=== PATIENT | male | born 1965 | race Caucasian/White ===

== ENCOUNTER 2020-07-11 06:51 | Outpatient (REF) | payer OTHER, SELFPAY ==
[2020-07-16 14:11] LABS: Testosterone, Free 64.4 pg/mL (35.0-155.0); Testosterone, Total 515 ng/dL (250-1100)
== END 2020-07-11 06:52 | disposition home or self-care (01) ==
LOC: HO.LAB 06:51
PROVIDERS: PCP Internal Medicine; Visit Provider Internal Medicine
DX: E78.2 Mixed hyperlipidemia (principal); I10 Essential (primary) hypertension; F17.200 Nicotine dependence, unspecified, uncomplicated; Z86.010 Personal history of colon polyps
CPT/HCPCS: 84402; 84403

== ENCOUNTER 2020-08-22 07:09 | Outpatient (REF) | payer OTHER, SELFPAY | END 2020-08-22 07:10 | disposition home or self-care (01) | LOC: HO.LAB 07:09 | PROVIDERS: Visit Provider Internal Medicine | DX: Z20.828 Contact with and (suspected) exposure to other viral communicable diseases (principal) | CPT/HCPCS: C9803; U0003 ==

== ENCOUNTER 2020-12-10 07:43 | Outpatient (REF) | payer OTHER, SELFPAY ==
[2020-12-10 08:11] LABS: MANUAL DIFF FLAG NO
[2020-12-10 08:16] LABS: Basophils Absolute Auto 0.1 X10*3/uL (0.0-0.2); Basophils Percent Auto 0.6 % (0-2); Eosinophils Absolute Auto 0.2 X10*3/uL (0.0-0.4); Eosinophils Percent Auto 2.2 % (0-4); Hematocrit 51.5 % (42-52); Hemoglobin 17.4 g/dl (14.0-18.0); Imm Gran Abs Auto 0.04 X10*3/uL (0.00-0.03); Imm Gran Pct Auto 0.4 % (0.0-0.4); Lymphocytes Absolute Auto 2.4 X10*3/uL (1.2-4.9); Lymphocytes Percent Auto 27.2 % (20-40); Mean Corpuscular HGB Conc 33.8 g/dl (31.0-36.0); Mean Corpuscular Hemoglobin 29.7 pg (27.0-33.0); Mean Corpuscular Volume 87.9 fL (80-98); Mean Platelet Volume 10.1 fL (9.4-12.4); Monocytes Absolute Auto 0.7 X10*3/uL (0.1-1.2); Monocytes Percent Auto 8.3 % (2-11); Neutrophils Absolute Auto 5.5 X10*3/uL (2.0-8.3); Neutrophils Percent Auto 61.3 % (45-73); Platelet Count 165 X10*3/uL (160-400); Red Blood Count 5.86 X10*6/uL (4.60-5.80); Red Cell Distribution Width 12.6 % (11.0-16.0); White Blood Count 8.9 X10*3/uL (4.8-10.8)
[2020-12-10 08:52] LABS: Alanine Aminotransferase 40 U/L (0-40); Albumin Level 4.5 g/dL (3.5-5.0); Alkaline Phosphatase 69 U/L (39-117); Anion Gap 14 (12-20); Aspartate Amino Transferase 26 U/L (5-37); Bilirubin Total 0.5 mg/dL (0.0-1.0); Blood Urea Nitrogen 11 mg/dL (9-16); Calcium 9.2 mg/dL (8.4-10.2); Carbon Dioxide 26 mmol/L (22-29); Chloride 103 mmol/L (96-108); Cholesterol 158 mg/dL; Estimated Glomerular Filt Rate > 60; Glucose Random 130 mg/dL (60-115); HDL Cholesterol 33 mg/dL; LDL Cholesterol Calculated 76 mg/dl; Potassium 4.4 mmol/L (3.3-5.1); Sodium 139 mmol/L (135-145); Total Protein 7.5 g/dL (6.5-8.0); Triglycerides 246 mg/dL
== END 2020-12-10 07:44 | disposition home or self-care (01) ==
LOC: HO.LAB 07:43
PROVIDERS: PCP Internal Medicine; Visit Provider Internal Medicine
DX: E78.2 Mixed hyperlipidemia (principal); I10 Essential (primary) hypertension; Z72.0 Tobacco use; Z86.010 Personal history of colon polyps
CPT/HCPCS: 36415; 80053; 80061; 85025

== ENCOUNTER 2021-12-28 15:40 | Emergency (ER) | payer OTHER, SELFPAY ==
[2021-12-28 15:48] VITALS: BP 116/58; PULSE 88; RESP 16; TEMP 35.7; O2SAT 97; BMI 24.3
--- NOTE | 2021-12-28 16:44 | ED_ITS ---
HPI - Back Pain/Injury General Chief Complaint: Back Pain/Injury Stated Complaint: back pain Time Seen by Provider: 12/28/21 16:44 Source: patient Mode of arrival: ambulatory Limitations: no limitations History of Present Illness HPI Narrative: Patient is a 56 year old male presenting to the emergency department today with low back pain. Patient states that he has low back that radiates into his left leg. Patient denies any dizziness, lightheadedness, abdominal pain, nausea, vomiting, fever, chills, blurry vision, double vision, loss of vision, chest pain, difficulty breathing, shortness of breath, night sweats, pain with urination, increased urinary frequency, increased urinary urgency, blood in his urine or stool, syncope or a near syncopal episode, recent trauma or falls, bowel incontinence, bladder incontinence, bowel retention, bladder retention, or any other complaints at this time. Patient states that he injured his left ankle and has been in PT for it but has recently been using crutches. MD elicited complaint: back pain Pertinent past history: prior back pain Onset (ago): day(s) Timing: intermittent Severity: mild Pain scale (0-10): 3 Similar Symptoms Previously: Yes Quality: dull Location: lumbar spine Radiation: left upper leg Exacerbating factors: none Relieving factors: none Associated symptoms: denies other symptoms Related Data Previous Rx's Medication Instructions Recorded cyclobenzaprine 10 mg tablet 10 mg PO TID PRN 7 Days #21 tab 12/28/21 Allergies Allergy/AdvReac Type Severity Reaction Status Date / Time No Known Allergies Allergy Unverified 10/23/21 14:50 [No Known Allergies*] Review of Systems Constitutional: Constitutional: Reports no additional constitutional complaints, Denies chills, Denies fever(s) and Denies night sweats Eyes: Eyes: Reports no additional eye complaints, Denies blurry vision, Denies change in vision, Denies diplopia, Denies eye discharge, Denies loss of vision and Denies eye pain ENT: Denies dizziness Cardiovascular: Cardiovascular: Reports no additional cardiovascular complaints, Denies chest pain, Denies lightheadedness, Denies Loss of Consciousness and Denies dyspnea Respiratory: Respiratory: Reports no additional respiratory complaints and Denies dyspnea Gastrointestinal: Gastrointestinal: Reports no additional gastrointestinal complaints, Denies abdominal pain, Denies melena, Denies hematochezia, Denies change in bowel habits and Denies change in stool character Genitourinary: Genitourinary: Reports no additional male genitourinary complaints, Denies hematuria, Denies oliguria, Denies difficulty urinating, Denies dysuria, Denies urinary frequency, Denies urinary hesitancy, Denies urinary incontinence and Denies urinary urgency Musculoskeletal: Musculoskeletal: Reports no additional musculoskeletal complaints, Reports back pain, Denies numbness and Denies tingling Neurologic: Denies dizziness, Denies loss of vision, Denies numbness and Denies tingling Psychiatric: Psychiatric: Reports no additional psychiatric complaints Endocrine: Endocrine: Reports no additional endocrine complaints Hematologic/Lymphatic: Hematologic/Lymphatic: Reports no additional hematologic/lymphatic complaints Allergic/Immunologic: Allergic/Immunologic: Reports no additional allergic/immunologic complaints PMFSH Past Medical History Attestation statement: The following information was validated with the patient. Source: old records reviewed Surgical History H/O elbow surgery History of appendectomy Social History Social History Advance Directives: No Advance Directives Information Provided: No Physical Exam Vital Signs: Vital Signs: Last Vital Signs Temp 96.2 F L 12/28/21 15:48 Pulse 88 12/28/21 15:48 Resp 16 12/28/21 15:48 BP 116/58 L 12/28/21 15:48 Pulse Ox 97 12/28/21 15:48 BMI result Body Mass Index 24.3 Const: General: cooperative, no acute distress, alert and awake Nutritional Appearance: well nourished Orientation/consciousness: patient oriented x3 Limitations: no limitations HEENT: Head: Yes normal to inspection and Yes atraumatic Ears: hearing grossly normal bilaterally and external ears normal General nose exam: Normal external nose present, no nasal discharge noted and no epistaxis Face and sinus: Yes normal facial exam, No abrasion and No laceration Mouth: Normal oral and palatal mucosa present, no drooling and no muffled voice Eyes: General: appearance normal, both eyes and all related structures Periorbital: periorbital findings normal Eyelids: Yes eyelids normal Conjunctivae: conjunctivae normal Pupils: Equal, round and reactive pupils present EOM: EOMs intact bilaterally Neck: Neck: Yes normal visual inspection, Yes full ROM and Yes no lymphadenopathy Chest: Chest palpation & inspection: normal inspection of the chest Resp: Effort & Inspection: normal respiratory effort and able to speak in complete sentences Auscultation: clear to auscultation bilaterally Cardio: Rate: regular rate Rhythm: regular rhythm GI: Inspection: Yes normal to inspection Back/Spine/Pelvis: Cervical Spine: normal cervical lordosis and cervical ROM normal Thoracic/Lumbar Spine: thoracic and lumbar spine normal to inspection and thoraco-lumbar ROM normal Neuro: General: patient oriented x3 and moves all extremities Cranial nerves: Yes Equal, round and reactive pupils present Cognition (Neuro): normal cognition Motor exam (neuro): 5/5 motor strength present throughout Sensory Exam: Normal double simultaneous stimulation for sensation Coordination: [id number] test normal Extrem: General: Yes normal to inspection, Yes full ROM and Yes capillary refill normal Psych: Appearance: grossly normal Mental Status: mental status grossly normal Affect: normal affect Attitude: cooperative Thought process: Normal thought process present Thought content: Normal thought content present Insight: Good insight present (Psych) MDM - Back Pain/Injury MDM Narrative Medical decision making narrative: Patient is a 56 year old male presenting to the emergency department today with low back pain. Patient's physical exam was unremarkable. I explained my physical exam findings to the patient. I answered all questions asked by the patient. Patient received PO Flexeril and IM toradol which he stated helped his symptoms significantly. I stressed the importance of the patient taking his medication as prescribed. I stressed the importance of the patient following up with his primary care provider and an orthopedist. I stressed the importance of the patient returning to the emergency department immediately if his symptoms were to worsen or if he were to develop any dizziness, shortness of breath, difficulty breathing, chest pain, blurry vision, loss of vision, nausea, vomiting, abdominal pain, fever, chills, back pain, or any other complaints. Patient verbalized agreement and understanding with this treatment plan and discharge. Differential Diagnosis Differential diagnosis: Likely sciatica Medical Records Attestation: I reviewed the patient's medical records. Discharge Plan Discharge Clinical Impression: Sciatica Patient Disposition: Home, Self-Care Instructions: Sciatica (ED) Additional Instructions: Call to schedule a follow up appointment with an Orthopedic provider. Follow up with your primary care provider. Return to the emergency department immediately if your symptoms worsen or if you develop any dizziness, shortness of breath, difficulty breathing, chest pain, blurry vision, loss of vision, nausea, vomiting, abdominal pain, fever, chills, back pain, or any other complaints. Prescriptions: New cyclobenzaprine 10 mg tablet 10 mg PO TID PRN (Reason: muscle spasm) 7 Days Qty: 21 0RF [place] [facility] [place] [facility] [place] Group] Print Language: Yi
[2021-12-28] MEDS: Cyclobenzaprine HCl 10 MG TABLET PO (17:12)
[2021-12-28] MEDS: Ketorolac Tromethamine 30 MG/ML VIAL IM (17:12)
== END 2021-12-28 17:31 | disposition home or self-care (01) ==
PROVIDERS: Emergency Provider Internal Medicine; PCP Internal Medicine
DX: M54.42 Lumbago with sciatica, left side (principal)
CPT/HCPCS: 96372; 99284; J1885

== ENCOUNTER 2022-01-14 17:24 | Emergency (ER) | payer OTHER, SELFPAY ==
--- NOTE | ~2022-01-14 | CT_ITS ---
EXAMINATION: CT ABDOMEN AND PELVIS WITH CONTRAST CLINICAL INFORMATION: Back and flank pain COMPARISON: None TECHNIQUE: Multidetector volumetric images were obtained from the superior aspect of the liver through the pubic symphysis following administration 85 mL of Omnipaque 350 intravenous contrast. Sagittal and coronal reformatted images were obtained on the technologist's workstation. Oral contrast: No This CT examination was performed using dose optimization techniques as appropriate, variously including the following: *Automated exposure control *Adjustment of mA and/or kV according to patient size (this includes techniques or standardized protocols for targeted exams where dose is matched to indication/reason for exam; i.e. extremities or head) *Use of iterative reconstruction technique DLP: 648 mGy-cm FINDINGS: LUNG BASES: The visualized lung bases are unremarkable. LIVER, GALLBLADDER, AND BILIARY TREE: The liver is normal in size, shape, and attenuation. Tiny 5 mm hypodensity in the right lobe of the liver indeterminate because of its small size (6:114). No other focal hepatic lesion or biliary ductal dilatation is present. The gallbladder is contracted but otherwise unremarkable with no evidence of radiopaque gallstones, gallbladder wall thickening, or obvious pericholecystic inflammatory changes. PANCREAS: Unremarkable. SPLEEN: Unremarkable. ADRENAL GLANDS: Unremarkable. KIDNEYS AND URETERS: The kidneys are normal in size, shape, and attenuation. A small Bosniak class I left upper pole left kidney and left lower pole renal cyst is seen the largest measuring 1.7 cm. These need no further imaging or follow-up. No hydronephrosis, hydroureter, or calculi seen. No perinephric stranding. BLADDER: Unremarkable. GASTROINTESTINAL TRACT: The small and large bowel are unremarkable. The appendix is none identified with certainty.. ABDOMINAL WALL: No significant hernia is appreciated. LYMPH NODES: Normal. VASCULAR: Unremarkable. The iliac vessels are tortuous. No aneurysms are seen. PELVIC VISCERA: There is mild BPH. Seminal vesicles appear normal. OSSEOUS STRUCTURES: Diffuse sclerotic lesions are present throughout the skeleton with some lytic areas. Findings are concerning for metastatic disease no definite pathologic fractures are seen. CT/CT abdomen pelvis w con IMPRESSION: Diffuse sclerotic and some lytic areas are seen throughout the skeleton. Findings are concerning metastatic disease, possibly prostate among other possibilities. Other incidental findings as described above. This critical result was discussed with RONALD Simpson at 9:20 PM on the evening of the exam and it was ascertained that the content and urgency of the report was understood at the time of direct communication. Fleischner guidelines were followed.
--- NOTE | ~2022-01-14 | CT_ITS ---
EXAMINATION: CT LUMBAR SPINE WITH CONTRAST CLINICAL INFORMATION: Low back pain. COMPARISON: Lumbar spine x-ray December 2018. TECHNIQUE: Axial images through the lumbar spine without contrast. Sagittal and coronal reconstructions on the technologist's workstation were performed. This CT examination was performed using dose optimization techniques as appropriate, variously including the following: *Automated exposure control. *Adjustment of mA and/or kV according to patient size (this includes techniques or standardized protocols for targeted exams where dose is matched to indication/reason for exam; i.e. extremities or head). *Use of iterative reconstruction technique. DLP: 648 mGy-cm FINDINGS: Bone alignment is normal. No fracture or dislocation is seen. There is heterogeneous attenuation of the bones with multiple lytic and sclerotic lesions. Findings are suggestive of bony metastatic disease. SPINAL LEVELS: At L1-L2, there is no disc herniation protrusion or bulge. Spinal canal, lateral recesses and neural foramen are patent. At L2-L3, there is a small left paracentral disc herniation. There is a small amount of air seen in the L2-L3 disc space. There is a small amount of air seen posterior to the L3 vertebral body. This may be related to disc disease. Differential would include infection. There is a severe secondary spinal stenosis at L2-L3 due to disc, and short pedicles. At L3-L4, there is broad-based diffuse disc bulge. There is no disc herniation. There is [id number] spinal stenosis due to disc and short pedicles. At L4-L5, there is diffuse disc bulge. No disc herniation is seen. There is moderate spinal stenosis due to disc and short pedicles. At L5-S1, there is mild disc bulge. No disc herniation is seen. No spinal stenosis is seen. Paraspinal soft tissues are normal. CT/CT lumbar spine w con IMPRESSION: 1. Heterogeneous appearance of the bones with multiple small sclerotic and lytic lesions. Findings are suggestive of bony metastatic disease. 2. Small left paracentral disc herniation at L2-L3. Small amount of air in the disc space at L2-L3 and air posterior to the L3 vertebral body. This may be related to degenerative disc disease. Differential would include infection. Severe secondary spinal stenosis due to disc and short pedicles at L2-L3. Disc bulge and moderate secondary spinal stenosis at L3-L4 and L4-L5.
[2022-01-14 17:38] VITALS: BP 103/49; PULSE 88; RESP 25; TEMP 36.9; O2SAT 99; BMI 23.7
[2022-01-14 17:47] LABS: MANUAL DIFF FLAG NO
[2022-01-14 17:49] LABS: Basophils Percent Auto 0.2 % (0-2); Eosinophils Absolute Auto 0.1 X10*3/uL (0.0-0.4); Eosinophils Percent Auto 0.6 % (0-4); Hematocrit 38.7 % (42.0-52.0); Hemoglobin 13.3 g/dl (14.0-18.0); Imm Gran Pct Auto 4.6 % (0.0-0.4); Lymphocytes Absolute Auto 3.4 X10*3/uL (1.2-4.9); Lymphocytes Percent Auto 26.1 % (20-40); Mean Corpuscular HGB Conc 34.4 g/dl (31.0-36.0); Mean Corpuscular Hemoglobin 27.4 pg (27.0-33.0); Mean Corpuscular Volume 79.6 fL (80.0-98.0); Mean Platelet Volume 9.4 fL (9.4-12.4); Monocytes Absolute Auto 0.8 X10*3/uL (0.1-1.2); Monocytes Percent Auto 6.3 % (2-11); Neutrophils Absolute Auto 8.1 x10*3/uL (2.0-8.3); Neutrophils Percent Auto 62.2 % (45-73); Platelet Count 249 X10*3/uL (160-400); Red Blood Count 4.86 X10*6/uL (4.60-5.80); Red Cell Distribution Width 15.1 % (11.0-16.0)
--- NOTE | 2022-01-14 18:09 | ECG_ITS ---
Test Reason : TACHYCARDIA Blood Pressure : / mmHG Vent. Rate : 099 BPM Atrial Rate : 099 BPM P-R Int : 120 ms QRS Dur : 090 ms QT Int : 324 ms P-R-T Axes : 045 040 027 degrees QTc Int : 415 ms Normal sinus rhythm Normal ECG When compared with ECG of 11-OCT-2018 14:08, No significant change was found Referred By: Emily Miguel Electronically Signed By:RITA WEATHERS
[2022-01-14 18:10] LABS: Alanine Aminotransferase 22 U/L (0-40); Albumin Level 3.9 g/dL (3.5-5.0); Alkaline Phosphatase 644 U/L (39-117); Anion Gap 16 (12-20); Aspartate Amino Transferase 78 U/L (5-37); Bilirubin Total 0.6 mg/dL (0.0-1.0); Blood Urea Nitrogen 20 mg/dL (9-16); Calcium 9.3 mg/dL (8.4-10.2); Carbon Dioxide 20 mmol/L (22-29); Chloride 103 mmol/L (96-108); Creatinine Clr Calc Pharmacy 126.2; Estimated Glomerular Filt Rate > 60; Glucose Random 193 mg/dL (60-115); Potassium 4.2 mmol/L (3.3-5.1); Sodium 135 mmol/L (135-145); Total Protein 6.7 g/dL (6.5-8.0)
--- NOTE | 2022-01-14 18:15 | ED.BACK ---
HPI - Back Pain/Injury General Chief Complaint: Back Pain/Injury Stated Complaint: back pain/hip pain Time Seen by Provider: 01/14/22 18:56 Source: patient Mode of arrival: ambulatory Limitations: no limitations History of Present Illness HPI Narrative: 56-year-old male presents for lower back pain that has worsened over the past several weeks. Noted that this back pain started in October while he was ambulating on crutches for a broken ankle. States the pain has gotten so bad that difficult for him to urinate. Does not report any symptoms indicating cauda equina, does not report additional trauma, fevers, chills or any other concerning symptoms. MD elicited complaint: back pain Onset (ago): month(s) (3) Timing: constant Severity: severe Pain scale (0-10): 9 Similar Symptoms Previously: Yes Quality: aching, spasming and throbbing Location: lumbar spine, left upper back and left lower back Radiation: none Exacerbating factors: movement, walking, coughing/sneezing and lifting Relieving factors: none Context: unknown Associated symptoms: increased urinary frequency Treatments prior to arrival: NSAIDS and acetaminophen Work related injury: No Related Data Previous Rx's Medication Instructions Recorded cyclobenzaprine 10 mg tablet 10 mg PO TID PRN 7 Days #21 tab 12/28/21 lorazepam 1 mg tablet (Ativan) 1 mg PO Q4-6H PRN 3 Days #18 tab 01/14/22 oxycodone 5 mg tablet 5 mg PO Q4H PRN 3 Days #18 tab 01/14/22 Allergies Allergy/AdvReac Type Severity Reaction Status Date / Time No Known Allergies Allergy Verified 01/14/22 17:41 [No Known Allergies*] Review of Systems Review of Systems: Constitutional: No Fever, No Chills ENT/Mouth: No Ear Pain, No Hoarseness, No sore throat Eyes: No Eye Pain, No Swelling, No Redness, No Foreign Body Cardiovascular: No Chest Pain, No SOB Respiratory: No Cough, No Dyspnea Gastrointestinal: No Nausea, No Vomiting, No Diarrhea, No abdominal Pain Genitourinary: Positive urinary frequency, No Dysuria, No Hematuria Musculoskeletal: positive lower back pain, No Myalgias, No Joint Swelling Skin: No Skin lacerations, No rash Neuro: No Weakness, No Numbness, No Paresthesias, No Loss of Consciousness, No Dizziness, No Headache Psych: No Anxiety/Panic, No Depression Heme/Lymph: no easy bruising, no Lymphadenopathy Endocrine: No Polyuria, No Polydipsia Yes all other systems are reviewed and are negative ON LICENSE OF [facility] Past Medical History Attestation statement: The following information was validated with the patient. Source: old records reviewed Surgical History H/O elbow surgery History of appendectomy Social History Social History Advance Directives: No Advance Directives Information Provided: No Physical Exam Vital Signs: Vital Signs: Last Vital Signs Temp 98.7 F 01/14/22 19:42 Pulse 100 01/14/22 21:32 Resp 20 01/14/22 21:36 BP 124/82 01/14/22 21:32 Pulse Ox 97 01/14/22 21:32 BMI result Body Mass Index 23.7 Appearance: Alert. Oriented X3. Moderate distress. Eyes: Pupils equal, round and reactive to light. Sclera nonicteric. ENT: Pharynx normal. Moist mucous membranes. Neck: Normal inspection. Neck supple. No vertebral tenderness or step-offs noted. CVS: Normal heart rate and rhythm. Pulses normal. Respiratory: No respiratory distress. Breath sounds normal. Abdomen: Soft and diffusely tender. Bilateral CVA tenderness noted. Skin: Skin warm and dry. Normal skin color. Normal skin turgor. Extremities: No lower extremity edema. Moves all extremities against resistance. Neuro: No motor deficit. No sensory deficit. Cranial nerves 2-12 intact. Course Course Course Narrative: 56-year-old male presents with lower back pain that started in October after using crutches. States the pain is progressively gotten worse and was evaluated here in the emergency department on 12/28/2021 with a negative workup. Patient states the pain is so severe, he is having difficulty urinating but not having any symptoms indicating cauda equina. Does have some flank pain, has had periods of weakness, diaphoresis and pallor. Will order additional lab values and CT scan of abdomen pelvis with lumbar spine. 19:31 urinalysis is still pending. I did express the urgency of needing this urinalysis from the patient, he is attempting to give us a sample. 19:50 urine obtained and sent to the lab. 21:20 Discussion with [facility], findings consistent with possible metastatic disease. 22:25 detailed discussion with patient and patient's family regarding findings. Patient will follow-up with primary care physician. Emotional support provided. Will prescribe medications for pain as well as anxiety. Patient verbalized understanding of and agrees to plan of care to discharge home. Verbalized understanding of signs and symptoms indicating need for emergent intervention MDM - Back Pain/Injury Differential Diagnosis Differential diagnosis: Likely lumbar radiculopathy, sciatica, strain of lumbar region, renal colic, pyelonephritis, thoracic back pain and discitis Medical Records Attestation: I reviewed the patient's medical records. Lab Data Attestation: I reviewed the patient's lab results. Result diagrams: 01/14/22 17:43 01/14/22 17:43 Labs: Lab Results 01/14/22 01/14/22 01/14/22 Range/Units 17:43 17:43 18:28 WBC 13.0 H (4.8-10.8) X10*3/uL RBC 4.86 (4.60-5.80) X10*6/uL Hgb 13.3 L (14.0-18.0) g/dl Hct 38.7 L (42.0-52.0) % MCV 79.6 L (80.0-98.0) fL MCH 27.4 (27.0-33.0) pg MCHC 34.4 (31.0-36.0) g/dl RDW 15.1 (11.0-16.0) % Plt Count 249 (160-400) X10*3/uL MPV 9.4 (9.4-12.4) fL Immature Gran % (Auto) 4.6 H (0.0-0.4) % Neut % (Auto) 62.2 (45-73) % Lymph % (Auto) 26.1 (20-40) % Powell % (Auto) 6.3 (2-11) % Eos % (Auto) 0.6 (0-4) % Baso % (Auto) 0.2 (0-2) % Lymph # (Auto) 3.4 (1.2-4.9) X10*3/uL Powell # (Auto) 0.8 (0.1-1.2) X10*3/uL Eos # (Auto) 0.1 (0.0-0.4) X10*3/uL Baso # (Auto) 0.0 (0.0-0.2) X10*3/uL Abs Immat Gran (auto) 0.60 H (0.00-0.03) X10*3/uL Absolute Neuts (auto) 8.1 (2.0-8.3) x10*3/uL Absolute Nucleated RBC 0.000 (0.0-0.012) X10*3/uL Nucleated RBC % (auto) 0.0 (0.0-0.2) /100WBC Sodium 135 (135-145) mmol/L Potassium 4.2 (3.3-5.1) mmol/L Chloride 103 (96-108) mmol/L Carbon Dioxide 20 L (22-29) mmol/L Anion Gap 16 (12-20) BUN 20 H (9-16) mg/dL Creatinine 0.79 (0.5-1.4) mg/dL Estim Creat Clear Calc 126.2 Estimated GFR > 60 Random Glucose 193 H D (60-115) mg/dL Lactic Acid 2.5 H* (0.5-2.0) mmol/L Lactic Acid F/U @ 2Hr (0.5-2.0) mmol/L Calcium 9.3 (8.4-10.2) mg/dL Magnesium (1.6-2.6) mg/dL Total Bilirubin 0.6 (0.0-1.0) mg/dL AST 78 H (5-37) U/L ALT 22 (0-40) U/L Alkaline Phosphatase 644 H D (39-117) U/L Troponin I High Sens (<3.5-35.0) ng/L Total Protein 6.7 (6.5-8.0) g/dL Albumin 3.9 (3.5-5.0) g/dL Urine Color Urine Appearance Urine pH (5.0-8.0) Ur Specific [place] (1.005-1.025) Urine Protein (NEG-TRACE) MG/DL Urine Glucose (UA) (NEG) MG/DL Urine Ketones (NEG) MG/DL Urine Blood (NEG) Urine Nitrite (NEG) Ur Leukocyte Esterase (NEG) Urine RBC (0) /HPF Urine WBC (0-4) /HPF Ur Squamous Epith Cells /LPF Urine Bacteria /LPF Hyaline Casts /LPF COVID-19 (TIESHA) (Negative) COVID-19 Clin Com Influenza Type A (JONAS) (Negative) Influenza Type B (JONAS) (Negative) Influenza A & B Note 01/14/22 01/14/22 01/14/22 Range/Units 18:28 18:28 18:28 WBC (4.8-10.8) X10*3/uL RBC (4.60-5.80) X10*6/uL Hgb (14.0-18.0) g/dl Hct (42.0-52.0) % MCV (80.0-98.0) fL MCH (27.0-33.0) pg MCHC (31.0-36.0) g/dl RDW (11.0-16.0) % Plt Count (160-400) X10*3/uL MPV (9.4-12.4) fL Immature Gran % (Auto) (0.0-0.4) % Neut % (Auto) (45-73) % Lymph % (Auto) (20-40) % Powell % (Auto) (2-11) % Eos % (Auto) (0-4) % Baso % (Auto) (0-2) % Lymph # (Auto) (1.2-4.9) X10*3/uL Powell # (Auto) (0.1-1.2) X10*3/uL Eos # (Auto) (0.0-0.4) X10*3/uL Baso # (Auto) (0.0-0.2) X10*3/uL Abs Immat Gran (auto) (0.00-0.03) X10*3/uL Absolute Neuts (auto) (2.0-8.3) x10*3/uL Absolute Nucleated RBC (0.0-0.012) X10*3/uL Nucleated RBC % (auto) (0.0-0.2) /100WBC Sodium (135-145) mmol/L Potassium (3.3-5.1) mmol/L Chloride (96-108) mmol/L Carbon Dioxide (22-29) mmol/L Anion Gap (12-20) BUN (9-16) mg/dL Creatinine (0.5-1.4) mg/dL Estim Creat Clear Calc Estimated GFR Random Glucose (60-115) mg/dL Lactic Acid (0.5-2.0) mmol/L Lactic Acid F/U @ 2Hr (0.5-2.0) mmol/L Calcium (8.4-10.2) mg/dL Magnesium 1.7 (1.6-2.6) mg/dL Total Bilirubin (0.0-1.0) mg/dL AST (5-37) U/L ALT (0-40) U/L Alkaline Phosphatase (39-117) U/L Troponin I High Sens < 3.5 (<3.5-35.0) ng/L Total Protein (6.5-8.0) g/dL Albumin (3.5-5.0) g/dL Urine Color Urine Appearance Urine pH (5.0-8.0) Ur Specific [place] (1.005-1.025) Urine Protein (NEG-TRACE) MG/DL Urine Glucose (UA) (NEG) MG/DL Urine Ketones (NEG) MG/DL Urine Blood (NEG) Urine Nitrite (NEG) Ur Leukocyte Esterase (NEG) Urine RBC (0) /HPF Urine WBC (0-4) /HPF Ur Squamous Epith Cells /LPF Urine Bacteria /LPF Hyaline Casts /LPF COVID-19 (TIESHA) (Negative) COVID-19 Clin Com Influenza Type A (JONAS) Negative (Negative) Influenza Type B (JONAS) Negative (Negative) Influenza A & B Note See Note 01/14/22 01/14/22 01/14/22 Range/Units 18:28 19:44 20:56 WBC (4.8-10.8) X10*3/uL RBC (4.60-5.80) X10*6/uL Hgb (14.0-18.0) g/dl Hct (42.0-52.0) % MCV (80.0-98.0) fL MCH (27.0-33.0) pg MCHC (31.0-36.0) g/dl RDW (11.0-16.0) % Plt Count (160-400) X10*3/uL MPV (9.4-12.4) fL Immature Gran % (Auto) (0.0-0.4) % Neut % (Auto) (45-73) % Lymph % (Auto) (20-40) % Powell % (Auto) (2-11) % Eos % (Auto) (0-4) % Baso % (Auto) (0-2) % Lymph # (Auto) (1.2-4.9) X10*3/uL Powell # (Auto) (0.1-1.2) X10*3/uL Eos # (Auto) (0.0-0.4) X10*3/uL Baso # (Auto) (0.0-0.2) X10*3/uL Abs Immat Gran (auto) (0.00-0.03) X10*3/uL Absolute Neuts (auto) (2.0-8.3) x10*3/uL Absolute Nucleated RBC (0.0-0.012) X10*3/uL Nucleated RBC % (auto) (0.0-0.2) /100WBC Sodium (135-145) mmol/L Potassium (3.3-5.1) mmol/L Chloride (96-108) mmol/L Carbon Dioxide (22-29) mmol/L Anion Gap (12-20) BUN (9-16) mg/dL Creatinine (0.5-1.4) mg/dL Estim Creat Clear Calc Estimated GFR Random Glucose (60-115) mg/dL Lactic Acid (0.5-2.0) mmol/L Lactic Acid F/U @ 2Hr 1.7 (0.5-2.0) mmol/L Calcium (8.4-10.2) mg/dL Magnesium (1.6-2.6) mg/dL Total Bilirubin (0.0-1.0) mg/dL AST (5-37) U/L ALT (0-40) U/L Alkaline Phosphatase (39-117) U/L Troponin I High Sens (<3.5-35.0) ng/L Total Protein (6.5-8.0) g/dL Albumin (3.5-5.0) g/dL Urine Color DK YELLOW Urine Appearance CLEAR Urine pH 5.5 (5.0-8.0) Ur Specific [place] >= 1.030 H (1.005-1.025) Urine Protein TRACE (NEG-TRACE) MG/DL Urine Glucose (UA) 250 H (NEG) MG/DL Urine Ketones 5 (NEG) MG/DL Urine Blood 1+ H (NEG) Urine Nitrite NEG (NEG) Ur Leukocyte Esterase NEG (NEG) Urine RBC 0-2 (0) /HPF Urine WBC 1-4 (0-4) /HPF Ur Squamous Epith Cells TRACE /LPF Urine Bacteria NONE /LPF Hyaline Casts 0-2 /LPF COVID-19 (TIESHA) Negative (Negative) COVID-19 Clin Com See Note Influenza Type A (JONAS) (Negative) Influenza Type B (JONAS) (Negative) Influenza A & B Note ECG Data Attestation: I personally reviewed and interpreted this ECG as follows: ECG interpretation date: 01/14/22 ECG interpretation time: 18:13 Prior ECG tracings: available for review Interpretation: Vent. rate 99 BPM MN interval 120 ms QRS duration 90 ms QT/QTc 324/415 ms P-R-T axes 45 40 27 Normal sinus rhythm Normal ECG When compared with ECG of 11-OCT-2018 14:08, No significant change was found Discharge Plan Discharge Clinical Impression: Back pain, Metastatic cancer to bone Patient Disposition: Home, Self-Care Instructions: Back Pain (ED), Bone Metastasis (ED) Additional Instructions: You were evaluated for lower back pain. CT scan of abdomen pelvis and lumbar spine indicates multiple lytic and sclerotic lesions suggestive of a bony metastatic disease. We did not find the primary source of cancer. You must follow-up with your primary care physician. You must follow-up with primary care physician for bone scan and bone biopsy, as well as other testing to find the primary source of cancer. I prescribed oxycodone. This medication is a narcotic and has high risk for addiction and abuse. This medication will cause drowsiness, delay reaction time, increased risk for falls, and cause constipation. Please use MiraLax daily to prevent constipation. I prescribed Ativan for anxiety. Please take this medication as prescribed. Do not drive or operate machinery while taking this medication. do not drink alcohol while taking either oxycodone or Ativan. Thank you for choosing this emergency department for evaluation. Please follow-up with primary care physician as needed. Return to the emergency department for any new, concerning, or worsening symptoms. Prescriptions: New oxycodone 5 mg tablet 5 mg PO Q4H PRN (Reason: pain) 3 Days Qty: 18 0RF Rx Instructions: Metastatic bone cancer lorazepam [Ativan] 1 mg tablet 1 mg PO Q4-6H PRN (Reason: anxiety) 3 Days Qty: 18 0RF Rx Instructions: Metastatic bone cancer No Action cyclobenzaprine 10 mg tablet 10 mg PO TID PRN (Reason: muscle spasm) 7 Days Qty: 21 0RF Referrals: Yessy Solis MD [Primary Care Provider] - (Metastatic bone cancer) Interventions: ED Discharge Assessment Last Done: 01/14/22 23:27 Discharge Date/Time: 01/14/22 23:10
[2022-01-14] MEDS: 0.9 % Sodium Chloride 1,000 ML 999 ML IVCONT ×2 (18:38→19:18)
[2022-01-14 18:57] LABS: Magnesium 1.7 mg/dL (1.6-2.6)
[2022-01-14 19:02] LABS: Influenza A Negative (Negative); Influenza B2 Negative (Negative)
[2022-01-14 19:03] LABS: COVID-19 Test Negative (Negative); IDNOW Serial# 16C4AD1C; Lactic Acid 2.5 mmol/L (0.5-2.0)
[2022-01-14 19:14] LABS: Troponin-I High Sensitivity < 3.5 ng/L (<3.5-35.0)
[2022-01-14 19:42] VITALS: BP 111/69; PULSE 101; RESP 18; TEMP 37.1; O2SAT 96
[2022-01-14 19:55] LABS: Appearance Urine CLEAR; Color Urine DK YELLOW; Glucose Urine UA 250 MG/DL (NEG); Leukocyte Esterase Urine NEG (NEG); Nitrite Urine NEG (NEG); PH 5.5 (5.0-8.0); Specific Gravity - Urine >= 1.030 (1.005-1.025); UACC Culture Trigger NO; Urine Blood 1+ (NEG); Urine Ketones 5 MG/DL (NEG); Urine Protein TRACE MG/DL (NEG-TRACE)
[2022-01-14 20:17] LABS: RBC Urine 0-2 /HPF (0)
[2022-01-14 20:18] LABS: Hyaline Casts Urine 0-2 /LPF; Squamous Epithelial Cell Urine TRACE /LPF
[2022-01-14 20:36] LABS: Reflex Lactate? Lactic Acid Added
[2022-01-14] MEDS: iohexoL 350 MG/ML 100 ML INFUS..BTL IV (20:49)
[2022-01-14 21:11] LABS: ~Lactic Acid-LAB USE ONLY 1.7 mmol/L (0.5-2.0)
[2022-01-14 21:32] VITALS: BP 124/82; PULSE 100; RESP 13; O2SAT 97
[2022-01-14] MEDS: diazePAM 2 MG TABLET PO (21:35)
[2022-01-14] MEDS: Ketorolac Tromethamine 30 MG/ML VIAL IVPUSH (21:35)
[2022-01-14 21:36] VITALS: RESP 20
[2022-01-14] MEDS: Morphine Sulfate 2 MG/ML CARTRIDGE IVPUSH (21:36)
== END 2022-01-14 23:10 | disposition home or self-care (01) ==
PROVIDERS: Nurse Practitioner Family; Emergency Provider Emergency Medicine; PCP Internal Medicine
DX: M54.50 Low back pain, unspecified (principal); C79.51 Secondary malignant neoplasm of bone; R35.0 Frequency of micturition; Z20.822 Contact with and (suspected) exposure to COVID-19
CPT/HCPCS: 36415; 72132; 74177; 80053; 81001; 83605; 83735; 84484; 85025; 87040; 87502; 87635; 93005; 96361; 96374; 96375; 99284; J1885; J2270; Q9967

== ENCOUNTER 2022-01-15 14:21 | Outpatient (REF) | payer OTHER, SELFPAY | END 2022-01-15 14:22 | disposition home or self-care (01) | LOC: HO.LAB 14:21 | PROVIDERS: PCP Internal Medicine; Visit Provider Internal Medicine | DX: C79.51 Secondary malignant neoplasm of bone (principal); M51.16 Intervertebral disc disorders with radiculopathy, lumbar region; R39.11 Hesitancy of micturition; Z72.0 Tobacco use; Z12.5 Encounter for screening for malignant neoplasm of prostate | CPT/HCPCS: 36415; 84153 ==

== ENCOUNTER → 2022-01-17 11:15 | Outpatient (BNVA) | payer OTHER, SELFPAY | PROVIDERS: PCP Internal Medicine; Visit Provider Urology | DX: Z13.89 Encounter for screening for other disorder (principal) ==

== ENCOUNTER → 2022-01-20 10:53 | Outpatient (BNV) | payer OTHER, SELFPAY | PROVIDERS: PCP Internal Medicine; Referring Provider Internal Medicine; Visit Provider Internal Medicine | DX: C61 Malignant neoplasm of prostate (principal) | CPT/HCPCS: 99213; 99214; 99215 ==

== ENCOUNTER → 2022-01-23 12:06 | Day surgery (SDC) | payer OTHER, SELFPAY ==
[2022-01-23 12:14] VITALS: BMI 23.1
[2022-01-23 12:15] VITALS: BP 113/78; PULSE 97; RESP 16; TEMP 36; O2SAT 97
--- NOTE | 2022-01-23 12:45 | W.PM.OPN ---
Operative Note Operative Note Date of Service: 01/23/22 Narrative: Preoperative diagnosis: Elevated PSA Postoperative diagnosis: Elevated PSA Procedure: 1. transrectal ultrasound measurement of prostate 2. transrectal ultrasound-guided pudendal nerve block 3. transrectal ultrasound-guided prostate biopsy 12 core Surgeon: Dr. Asif Gloria Anesthetic: Local Indications for procedure: Elevated PSA Prostate Cancer Procedure: After informed consent was verified, the patient was brought into the procedure area and lay left-hand side down on the table. Patient identity confirmed. Perioperative antibiotics confirmed. Iodine 10cc with Gel was placed per rectum Ultrasound probe was placed per rectum The prostate was measured in 3 dimensions Total volume equals 40 gm There were no cystic structures and no calcifications noted and the prostate was homogeneous in nature A ultrasound-guided pudendal nerve block was performed using 10 cc of 1% lidocaine. 8 cc was placed at the base and 2 cc of the apex. A 12 core biopsy was performed with 6 cores each side. Two cores were taken at the apex, mid and base. Cores were spaced between lateral and medial. He tolerated the procedure well. Was able to ambulate to bathroom after 5 minutes. Printed instructions regarding antibiotic use and common side effects such as low-grade temperature and bleeding were given Pathology: 12 core prostate biopsy.
== END ==
PROVIDERS: PCP Internal Medicine; Visit Provider Urology
PROC: (CPT 55700; principal; 2022-01-23 12:30)
DX: C61 Malignant neoplasm of prostate (principal); C79.51 Secondary malignant neoplasm of bone
CPT/HCPCS: 55700; 76942; 88305

== ENCOUNTER → 2022-01-30 10:41 | Outpatient (BNVA) | payer OTHER, SELFPAY | PROVIDERS: PCP Internal Medicine; Visit Provider Urology | DX: C61 Malignant neoplasm of prostate (principal); C79.51 Secondary malignant neoplasm of bone ==

== ENCOUNTER → 2022-01-31 10:36 | Outpatient (REF) | payer OTHER, SELFPAY ==
--- NOTE | ~2022-01-31 | NM_ITS ---
EXAMINATION: NM BONE SCAN OF THE WHOLE BODY CLINICAL INFORMATION: Bone metastases. COMPARISON: No previous bone scan is available for comparison. CT scans of the abdomen and pelvis and of the lumbar spine, all dated 01/14/2022 are available for comparison. TECHNIQUE: Multiple gamma scintillation camera images of the whole body were performed 2.75 hours following the intravenous administration of 29 mCi Tc-99m MDP. FINDINGS: In the head, multiple foci of mildly to moderately increased activity are present in the calvarium, with the most prominent abnormalities in the right frontal and midline and right occipital base. In the thoracic cage and upper extremities, multiple foci of moderately to markedly increased activity are present throughout the thoracic cage, with prominent abnormalities in the coracoid process of the right scapula and in the sternal manubrium, but the rib abnormalities are also diffuse. Foci of mildly increased activity are present in the proximal and mid shaft of the right humerus and in the glenohumeral articulation region. Small mild abnormalities are also present in both clavicles. In the spine, diffuse abnormalities of moderate to marked intensity are present throughout the spine. The largest and most intense abnormalities in the L4 vertebral body. In the pelvis, diffuse abnormalities of moderate to marked intensity are present. In the lower extremities, intense abnormality is present in the intertrochanteric region of the left femur and diffuse abnormality is present proximal to this in the left femoral head and neck. Mild abnormality is present in the intertrochanteric region of the right femur an there are additional faint foci of abnormally increased activity present in the proximal and mid shafts of both femurs. No other definite bony abnormalities are noted. The urinary bladder and faint visualization of both kidneys are noted. The CT scans dated 01/14/2022 shows diffuse sclerotic and lytic osseous lesions at correspond to the diffuse bone scan abnormalities described above. NM/NM bone scan whole body IMPRESSION: Widespread metastatic tumor involvement of bone.
== END ==
LOC: HO.NUCMED 10:36
PROVIDERS: Visit Provider Internal Medicine
DX: C61 Malignant neoplasm of prostate (principal); C79.51 Secondary malignant neoplasm of bone
CPT/HCPCS: 78306; A9503

== ENCOUNTER → 2022-02-05 12:48 | Outpatient (BNVA) | payer OTHER, SELFPAY | PROVIDERS: PCP Internal Medicine; Visit Provider Urology | DX: C79.51 Secondary malignant neoplasm of bone (principal) | CPT/HCPCS: 96402; J9217 ==

== ENCOUNTER 2022-02-10 13:12 | Outpatient (REF) | payer OTHER, SELFPAY ==
--- NOTE | ~2022-02-10 | XR_ITS ---
EXAMINATION: XR BILATERAL HIPS WITH AP PELVIS CLINICAL INFORMATION: Bone metastasis. Question fracture risk COMPARISON: None TECHNIQUE: AP view of the pelvis and 2 views of each hip were obtained. FINDINGS: There is diffuse sclerotic bone disease involving the pelvis and left femur. No fracture or dislocation is seen. There is mild arthritis at the right hip joint with superior lateral osteophyte. The sacroiliac joints and pubic symphysis are normal. Soft tissues are normal. XR/XR hip BI w PEL1V IMPRESSION: Extensive sclerotic bony disease of the pelvis and left femur.
== END 2022-02-10 13:13 | disposition home or self-care (01) ==
LOC: HO.XRAY 13:12
PROVIDERS: PCP Internal Medicine; Visit Provider Internal Medicine
DX: C61 Malignant neoplasm of prostate (principal); C79.51 Secondary malignant neoplasm of bone
CPT/HCPCS: 73521

== ENCOUNTER → 2022-04-30 14:17 | Outpatient (BNVA) | payer SELFPAY | PROVIDERS: PCP Internal Medicine; Visit Provider Physician Assistant | DX: Z02.79 Encounter for issue of other medical certificate (principal) ==

== ENCOUNTER → 2022-05-09 09:40 | Outpatient (REF) | payer OTHER, SELFPAY ==
--- NOTE | ~2022-05-09 | NM_ITS ---
EXAMINATION: NM BONE SCAN OF THE WHOLE BODY CLINICAL INFORMATION: Assess response to therapy. COMPARISON: The previous bone scan dated 01/31/2022 is available for comparison. Radiographs of the pelvis and bilateral hips dated 02/10/2022 are available for comparison. TECHNIQUE: Multiple gamma scintillation camera images of the whole body were performed 2.75 hours following the intravenous administration of 33 mCi Tc-99m MDP. FINDINGS: In the head, several small foci of increased activity are present in the skull, most prominently in the right frontal and left parasagittal posterior occipital skull and also in the skull base, probably involving the clivus and additional foci in the posterior occipital skull base. In the thoracic cage and upper extremities, multiple foci of increased activity are present throughout the thoracic cage. The most prominent abnormalities are in the sternal manubrium with multiple additional sternal abnormalities present, in the coracoid process region of the right scapula and in a small intense focus in the proximal right humerus. Multiple rib lesions are present and there is an additional faint focus in the proximal shaft of the right humerus. In the spine, multiple foci of moderately to markedly increased activity are present throughout the spine with the most prominent abnormality in the L4 vertebral body. In the pelvis, diffuse abnormalities are present in the pelvis, most intensely in the posterior iliac bones adjacent to the sacroiliac joints. In the lower extremities, very prominent diffuse abnormality is present in the proximal left femur extending from the left femoral head to the subcutaneous trochanteric proximal left femoral shaft. Mild abnormalities are also present in the intertrochanteric right femur. There is a minimal diffuse increase in activity in both patellae, likely degenerative. Some diffuse prominence of activity in the left ankle and proximal to mid left foot are noted. No other definite bony abnormalities are noted. The urinary bladder and very faint visualization of both kidneys are noted. Compared to the previous bone scan dated 01/31/2022, the pattern and intensity of the abnormalities has not changed significantly. Radiographs of the pelvis and right hips show extensive diffuse sclerotic abnormalities corresponding to bone scan abnormalities described above, particularly in the proximal left femur but extensive pelvic abnormalities are also present. NM/NM bone scan whole body IMPRESSION: Widespread metastatic tumor involvement of bone. There is no evidence of progression since 01/31/2022. The bone scan appears stable.
== END ==
LOC: HO.NUCMED 09:40
PROVIDERS: PCP Internal Medicine; Visit Provider Internal Medicine
DX: C61 Malignant neoplasm of prostate (principal); C79.51 Secondary malignant neoplasm of bone
CPT/HCPCS: 78306; A9503

== ENCOUNTER → 2022-10-08 09:33 | Outpatient (REF) | payer OTHER, SELFPAY ==
--- NOTE | ~2022-10-08 | NM_ITS ---
EXAMINATION: NM BONE SCAN OF THE WHOLE BODY CLINICAL INFORMATION: Prostate cancer, evaluate response to therapy. COMPARISON: The previous bone scans dated 05/09/2022 and 01/31/2022 are available for comparison. Radiographs of the pelvis and bilateral hips dated 02/10/2022 is also available for comparison. TECHNIQUE: Multiple gamma scintillation camera images of the whole body were performed 3.3 hours following the intravenous administration of 30 mCi Tc-99m MDP. FINDINGS: In the head, a faint right supraorbital focus of increased activity is present. There is also mildly increased activity in a small focus in the base of the right occipital skull. In the thoracic cage and upper extremities, multiple small mild foci of increased activity are present throughout the rib cage. Diffusely increased activity which is fairly heterogeneous is present throughout the sternum with a focus of more intensely increased activity present along the right lower margin of the sternum at the level of the fourth rib. There is markedly increased activity in the region of the coracoid process of the right scapula and in the adjacent moderately intense focus is present at the junction of the right humeral head and shaft. There is faintly increased activity in the acromioclavicular joints bilaterally and the glenohumeral articulation on the left. In the spine, a minimal thoracolumbar scoliosis is present with lumbar convexity to the right. There are foci of mildly increased activity throughout the spine, with slightly more prominent activity present and L4. In the pelvis, there is diffusely increased activity in the pelvis which is fairly homogeneous but small foci of more prominently increased activity are present at 2 sites in the midline and right paramidline sacrum and in the right inferior ischium. There is also small focus of more prominently increased activity in the right superior pubic ramus. In the lower extremities, there is intensely increased activity present in the proximal left femur extending from the femoral head to the subcutaneous trochanteric proximal left femoral shaft. Small foci of mildly increased activity are present in the greater trochanteric region of the right femur. No other definite bony abnormalities are noted. The urinary bladder and faint visualization of both kidneys are noted. Compared to the previous bone scan dated 05/09/2022, this scan appearance is very similar with the distribution and intensity of lesions showing no significant change. NM/NM bone scan whole body IMPRESSION: Widespread metastatic tumor involvement of bone which is stable since 05/09/2022. There is no evidence of significant progression at any site.
== END ==
LOC: HO.NUCMED 09:33
PROVIDERS: PCP Internal Medicine; Visit Provider Internal Medicine
DX: C61 Malignant neoplasm of prostate (principal); C79.51 Secondary malignant neoplasm of bone
CPT/HCPCS: 78306; A9503

== ENCOUNTER → 2022-11-12 09:58 | Outpatient (BNVA) | payer OTHER, SELFPAY | PROVIDERS: PCP Internal Medicine; Visit Provider Urology | DX: Z13.89 Encounter for screening for other disorder (principal) ==

== ENCOUNTER → 2022-12-03 10:15 | Outpatient (BNVA) | payer OTHER, SELFPAY | PROVIDERS: PCP Internal Medicine; Visit Provider Urology | DX: C61 Malignant neoplasm of prostate (principal) | CPT/HCPCS: 96402; J9217 ==

== ENCOUNTER → 2023-01-28 08:49 | Outpatient (BNVA) | payer OTHER, SELFPAY | PROVIDERS: PCP Internal Medicine; Visit Provider Urology ==

== ENCOUNTER → 2023-05-22 09:44 | Outpatient (REF) | payer OTHER, SELFPAY ==
--- NOTE | ~2023-05-22 | NM_ITS ---
EXAMINATION: NM BONE SCAN OF THE WHOLE BODY CLINICAL INFORMATION: Malignant neoplasm of prostate. COMPARISON: Most recent prior whole-body bone scan done on 10/08/2022 and available baseline study done on 01/31/2022. CT scan of the abdomen and pelvis done on 01/14/[address] of the lumbar spine done also on 01/14/2022 are reviewed as well. TECHNIQUE: Multiple gamma scintillation camera images of the whole body were performed 3 hours following the intravenous administration of 30 mCi Tc-99m MDP. The radiotracer was injected through left antecubital superficial vein without complications. FINDINGS: In the head, multifocal increased radiotracer activities slightly to the right hemicranium appears similar to prior study. In the thoracic cage and upper extremities, multifocal heterogeneous increased radiotracer activity in the thoracic cage including the sternum and bilateral multifocal ribs as well as the right shoulder and to a lesser extent left shoulder appears relatively stable. In the spine, multifocal increased radiotracer activities consistent with metastatic disease shows interval progression in the form of new increased radiotracer activity at the L3 vertebral body. In the pelvis, multifocal increased radiotracer activities appear stable. In the lower extremities, asymmetric intense increased radiotracer activities involving the left proximal femur including the head and neck and the intertrochanteric region appears similar to prior study. The patient is at risk for potential pathological fracture. Radiographic correlation is recommended. No other definite bony abnormalities are noted. The urinary bladder and faint visualization of both kidneys are noted. WI/WI bone scan whole body IMPRESSION: 1. Abnormal study showing multifocal randomly distributed increased radiotracer activities throughout the entire axial and appendicular skeleton, consistent with known multifocal osseous metastatic disease. 2. Interval disease progression in the form of increased radiotracer avidity at L3 vertebral body, new since the prior study dated 10/08/2022. 3. Given the presence of persistent intense radiotracer activity involving the proximal left femur, the patient is at risk for development of pathological fracture. Radiographic correlation is recommended.
== END ==
LOC: HO.NUCMED 09:44
PROVIDERS: Absent Provider Internal Medicine; PCP Internal Medicine; Visit Provider Urology
DX: C61 Malignant neoplasm of prostate (principal); C79.51 Secondary malignant neoplasm of bone
CPT/HCPCS: 78306; A9503

== ENCOUNTER 2023-05-28 07:18 | Outpatient (REF) | payer OTHER, SELFPAY ==
[2023-05-28 09:03] LABS: Prostate Specific Antigen 1.49 ng/mL (<0.05-4.0)
[2023-06-05 01:03] LABS: Testosterone, Total <1 ng/dL (250-1100)
== END 2023-05-28 07:19 | disposition home or self-care (01) ==
LOC: HO.LAB 07:18
PROVIDERS: PCP Internal Medicine; Visit Provider Urology
DX: C61 Malignant neoplasm of prostate (principal); C79.51 Secondary malignant neoplasm of bone; Z12.5 Encounter for screening for malignant neoplasm of prostate
CPT/HCPCS: 36415; 84153; 84403

== ENCOUNTER 2023-06-11 10:00 | Outpatient (AMB) | payer OTHER, SELFPAY ==
--- NOTE | 2023-06-11 10:08 | A.OFFVIS_ITS ---
Intake Intake Visit Reasons: PSA/Testo/Bone Scan/[facility](PA Approved)(05/22 Testo?) Intake Note: Patient is present for Follow Up labs/scan/ Eligard Injection Urology Med: Eligard, Abiraterone, Antibiotic Allergy: None Blood Thinner: None Pharmacy: [facility] Allergies No Known Allergies [No Known Allergies*] Allergy (Verified 06/11/23 10:10) HPI HPI Comments History of Present Illness Details Christian is a pleasant male. He is a patient of Dr. Solis. He is seen for the following urologic conditions - prostate cancer metastatic at [facility] 06/13 Bone Scan interval progression of L 3 lesion. Receiving rank Ligand injection every 3 months. PSA doubling time less than 6 months. Recommend reassessment [facility] for Lu177 and potential advice regarding anti androgen switching. GnRH administered 02/10 continued good response with contin uous abiraterone. Due for GnRH in May with bone scan Discussed exercise and resistance bands to help control metabolic impact 04/11 PSA rebound - addition of abiratero [facility] recommendation for to 2 years continuous 02/09 Initial therapy GnRH with upfront d ocetaxol PSA 01/10 380, 03/12 14, 04/11 35, 08/12 0.60, 10/13 0.47, 01/11 0.6 T <1, 06/13 1.49 T <1 Prostate Cancer 01/10 high-grade, high-volume, metastatic Last GnRH 12/11 Had presented through PCP with back pain Background of ankylosing spondylitis Initial PSA 01/10 380 Imaging - 01/10 CT scan with lytic spinal disease Histologic type:??Prostatic acinar adenocarcinoma Histologic grade:??3 + 4 = 7 (Parts E and F), 4 + 5 = 9 (Parts A-D, G-I), and 5 + 4 = 9 (Parts J-L) Tumor quantitation: Number cores positive:??12 Total number of cores:??12 - % of tissue involved:??90% (Parts D, G, I-J), 80% (Parts A,?H, L), 70% (Part B), 50% (Parts C, E, F, K) Periprostatic fat invasion:??Present, Seminal vesicle invasion:??Not identified, Perineural invasion:??Present, Lymphovascular invasion:??Not identified [facility] Medical History High cholesterol Prostate cancer Surgical History H/O elbow surgery History of appendectomy Family History Father Prostate CA Paternal Grandmother Lung cancer Maternal Grandmother Breast cancer Paternal Aunt Lung cancer Social History Household Members: None Housing: House Are you a primary career orientation teacher to a significant other at home: No Do you presently have visiting nurse or other home services: No Patient Tobacco Use Status: Former Tobacco user Quit Date: 12/2021 Tobacco use type: Cigarette service: No Current occupational status: employed Review of Systems Const Denies chills and Denies fever(s) Card Reports no additional complaints and Denies syncope Resp Denies cough GI Denies abdominal pain and Denies heartburn Reports as per HPI and Denies change in libido Neuro Denies syncope Psych Denies change in libido Endo Denies change in libido Physical Exam Const General: cooperative, healthy appearing, comfortable and no acute distress Orientation/consciousness: patient oriented x3 HEENT Face and sinus: Yes normal facial exam Mouth: moist mucous membranes Neck Neck: Yes normal visual inspection, Yes full ROM and Yes trachea midline Chest Chest palpation & inspection: normal inspection of the chest Resp Effort & Inspection: normal respiratory effort, able to speak in complete sentences and no respiratory distress GI Inspection: Yes normal to inspection Back/Spine/Pelvis Cervical Spine: normal cervical lordosis Thoracic/Lumbar Spine: thoracic and lumbar spine normal to inspection Skin General skin exam: no rashes or lesions noted Neuro General: patient oriented x3, gait normal, tone normal and moves all extremities Extrem General: Yes normal to inspection and Yes capillary refill normal Office Meds Eligard (6 month) 45 mg (6 month) subcutaneous syringe Performing Provider: Asif Gloria MD Performing Location[facility] [place] [facility] Administered by: Alana Dutton RN on 06/11/23 10:29 Dose Route Admin Location Dispensed Lot Number Expiration Date [facility] 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 Assessment & Plan Assessment & Plan (1) Prostate cancer metastatic to bone: Code(s): C61 - Malignant neoplasm of prostate; C79.51 - Secondary malignant neoplasm of bone Plan Three month follow-up lab work [facility] reassessment for LU177, and/or antiandrogen adjustment Orders: Orders AMB Leuprolide Injection - Practice Supplied Today C61 - Malignant neoplasm of prostate, C79.51 - Secondary malignant neoplasm of bone Prostate Specific Antigen 3 Months C61 - Malignant neoplasm of prostate, C79.51 - Secondary malignant neoplasm of bone Testosterone, Total 3 Months C61 - Malignant neoplasm of prostate, C79.51 - Secondary malignant neoplasm of bone Patient Instructions: Imaging studies, laboratory and physical exam results were discussed and reviewed in detail. No major barriers to patient understanding were identified. An opportunity to ask questions regarding the treatment plan was provided. All questions were answered. The patient expressed understanding and agreement with the above treatment plan. The patient is aware they should contact our office by phone for worsening of their current condition or the appearance of new urologic symptoms. Compliance is encouraged with any medications and followup testing that is ordered. It is a privilege to participate in the urologic care of your patient. If you have any questions or concerns regarding treatment for the above conditions, or other urologic issues, please do not hesitate to contact me. The office telephone contact is [phone]. This note is constructed using voice recognition software. While every effort has been made to ensure accuracy stone repairer errors may have been included. Yours sincerely, Dr Asif Gloria MD, [facility] - Urology Providers of Expert, Compassionate Care for the Genitourinary System Coding Level of Care Code Est Pt Level 4 (60945) Diagnoses Prostate cancer metastatic to bone C61; C79.51
== END 2023-06-11 10:40 | disposition home or self-care (01) ==
PROVIDERS: PCP Internal Medicine; Visit Provider Urology
DX: C61 Malignant neoplasm of prostate (principal); C79.51 Secondary malignant neoplasm of bone
CPT/HCPCS: 99214

== ENCOUNTER → 2023-06-11 10:00 | Outpatient (BNVA) | payer OTHER, SELFPAY | PROVIDERS: Visit Provider Urology | DX: C61 Malignant neoplasm of prostate (principal); C79.51 Secondary malignant neoplasm of bone | CPT/HCPCS: 96402; J9217 ==

== ENCOUNTER 2023-07-03 11:13 | Emergency (ER) | payer OTHER, SELFPAY ==
--- NOTE | ~2023-07-03 | XR_ITS ---
EXAMINATION: XR ANKLE, RIGHT CLINICAL INFORMATION: Fall. COMPARISON: None available. TECHNIQUE: AP, lateral, and mortise views of the right ankle. FINDINGS: Mild lateral malleolar, anterior ankle and proximal dorsal right foot soft tissue swelling couple vague lucencies distal fibula on oblique view only, but no definite cortical disruption. Mild distal medial fibular periosteal thickening. Mortise is intact. Alignment and articulations are maintained. XR/XR ankle RT min 3V IMPRESSION: No displaced fractures. Mild soft tissue swelling. Should symptoms persist, consider follow-up in 7-10 days.
[2023-07-03 11:21] VITALS: BP 146/85; PULSE 76; RESP 19; TEMP 36.8; O2SAT 96; BMI 26.5
--- NOTE | 2023-07-03 11:21 | ED.GENADULT ---
HPI - General Adult General Chief complaint: Extremity Injury, Lower Stated complaint: R ankle injury Time Seen by Provider: 07/03/23 11:31 Source: patient Mode of arrival: ambulatory Limitations: no limitations History of Present Illness HPI narrative: Patient is a 57 year old assigned male at with a history of prostate cancer presenting to the emergency department today with right ankle pain. Patient states that he rolled his right ankle last night trying to get out of his recliner. Patient denies any head strike, loss of consciousness, dizziness, lightheadedness, abdominal pain, nausea, vomiting, fever, chills, blurry vision, double vision, loss of vision, chest pain, difficulty breathing, shortness of breath, back pain, night sweats, pain with urination, increased urinary frequency, increased urinary urgency, blood in his urine or stool, syncope or a near syncopal episode, bowel incontinence, bladder incontinence, bowel retention, bladder retention, or any other complaints at this time. Onset (ago): day(s) (1) Location: right and lower extremity Radiation: non-radiation Severity: mild Severity scale (1-10): 3 Quality: aching and dull Pain Consistency: constant Relieving factors: none Exacerbating factors: none Associated symptoms: denies other symptoms Treatments prior to arrival: none Related Data Home Medications Medication Instructions Recorded Confirmed atorvastatin 20 mg tablet 20 mg PO DAILY 01/17/22 04/15/23 nicotine (polacrilex) 4 mg buccal 4 mg PO DAILY 01/17/22 04/15/23 lozenge zolpidem 5 mg tablet 5 mg PO BEDTIME PRN insomnia 08/11/22 04/15/23 leuprolide acetate (6 month) 45 mg 45 mg subcut [id number] 06/11/23 (6 month) subcutaneous syringe (adhoclabs) Previous Rx's Medication Instructions Recorded tramadol 50 mg tablet 50 mg PO Q8H PRN pain 14 days #60 02/05/22 tabs ondansetron 8 mg disintegrating 8 mg PO Q8H #60 tabs 05/28/23 tablet abiraterone 500 mg tablet 1,000 mg (2 x 500 mg) PO DAILY #60 06/05/23 tabs prednisone 5 mg tablet 5 mg PO DAILY #60 tabs 06/05/23 Allergies Allergy/AdvReac Type Severity Reaction Status Date / Time No Known Allergies Allergy Verified 06/11/23 10:10 [No Known Allergies*] Review of Systems Constitutional: Constitutional: Reports no additional constitutional complaints, Denies chills, Denies fever(s) and Denies night sweats Eyes: Eyes: Reports no additional eye complaints, Denies blurry vision, Denies change in vision, Denies diplopia, Denies eye discharge, Denies loss of vision and Denies eye pain ENT: Denies dizziness Cardiovascular: Cardiovascular: Reports no additional cardiovascular complaints, Denies chest pain, Denies lightheadedness, Denies Loss of Consciousness and Denies dyspnea Respiratory: Respiratory: Reports no additional respiratory complaints and Denies dyspnea Gastrointestinal: Gastrointestinal: Reports no additional gastrointestinal complaints, Denies abdominal pain, Denies melena, Denies hematochezia, Denies change in bowel habits and Denies change in stool character Genitourinary: Genitourinary: Reports no additional male genitourinary complaints, Denies hematuria, Denies oliguria, Denies difficulty urinating, Denies dysuria, Denies urinary frequency, Denies urinary hesitancy, Denies urinary incontinence and Denies urinary urgency Musculoskeletal: Musculoskeletal: Reports no additional musculoskeletal complaints, Denies numbness and Denies tingling Comments: right ankle pain Neurologic: Denies dizziness, Denies loss of vision, Denies numbness and Denies tingling Psychiatric: Psychiatric: Reports no additional psychiatric complaints Endocrine: Endocrine: Reports no additional endocrine complaints Hematologic/Lymphatic: Hematologic/Lymphatic: Reports no additional hematologic/lymphatic complaints Allergic/Immunologic: Allergic/Immunologic: Reports no additional allergic/immunologic complaints [facility] Past Medical History Attestation statement: The following information was validated with the patient. Source: old records reviewed and nursing notes reviewed Medical History High cholesterol Prostate cancer Surgical History H/O elbow surgery History of appendectomy Family History Family History Father Prostate CA Paternal Grandmother Lung cancer Maternal Grandmother Breast cancer Paternal Aunt Lung cancer Social History Social History Household Members: None Housing: House Are you a primary rn acute care to a significant other at home: No Do you presently have visiting nurse or other home services: No Patient Tobacco Use Status: Former Tobacco user Quit Date: 12/2021 Tobacco use type: Cigarette Advance Directives: No service: No Current occupational status: employed Physical Exam ED Vital Signs: Vital Signs - 24 hr 07/03/23 11:21 Temperature 98.3 F Pulse Rate 76 Respiratory Rate 19 Blood Pressure 146/85 H Pulse Oximetry 96 Oxygen Delivery Method Room Air BMI result Body Mass Index 26.5 Const General: cooperative, no acute distress, alert and awake Nutritional Appearance: well nourished Orientation/consciousness: patient oriented x3 Limitations: no limitations HENMT Head: Yes normal to inspection and Yes atraumatic Ears: hearing grossly normal bilaterally and external ears normal General nose exam: Normal external nose present, no nasal discharge noted and no epistaxis Face and sinus: Yes normal facial exam, No abrasion and No laceration Mouth: Normal oral and palatal mucosa present, no drooling and no muffled voice Eyes General: appearance normal, both eyes and all related structures Periorbital: periorbital findings normal Eyelids: Yes eyelids normal Conjunctivae: conjunctivae normal Pupils: Equal, round and reactive pupils present EOM: EOMs intact bilaterally Neck Neck: Yes normal visual inspection, Yes full ROM and Yes no lymphadenopathy Chest Chest palpation & inspection: normal inspection of the chest Resp Effort & Inspection: normal respiratory effort and able to speak in complete sentences GI Inspection: Yes normal to inspection Neuro General: patient oriented x3 and moves all extremities Cranial nerves: Yes Equal, round and reactive pupils present Cognition (Neuro): normal cognition Motor exam (neuro): 5/5 motor strength present throughout Sensory Exam: Normal double simultaneous stimulation for sensation Coordination: [id number] test normal Extrem Other: minimal swelling present to the right ankle General: Yes full ROM and Yes capillary refill normal Psych Appearance: grossly normal Mental Status: mental status grossly normal Affect: normal affect Attitude: cooperative Thought process: Normal thought process present Thought content: Normal thought content present Insight: Good insight present (Psych) Course Course Course Narrative: RME- 57-year-old male presents for evaluation of right ankle pain after rolling his ankle last night. Patient has pain to the right lateral ankle only. He has a history of prostate cancer with metastasis to the bone. Plan for x-ray Procedures Orthopedic Splinting/Casting Injury #1: Side: right Upper Extremity Immobilizer: Jamaal wrap Lower Extremity Injury Location: ankle Medical Decision Making Medical Decision Making MDM Narrative: Patient is a 57 year old assigned male at with a history of prostate cancer presenting to the emergency department today with right ankle pain. Patient's physical exam showed minimal swelling to the right ankle but was otherwise unremarkable. Patient's right ankle x-ray showed no acute process. I explained my physical exam findings as well as all test results to the patient. I answered all questions asked by the patient. Patient's right ankle was wrapped in an JAMAAL wrap, without incident. Patient's PMS was in tact prior to and after JAMAAL wrap application. I stressed the importance of the patient taking his medication as prescribed. I stressed the importance of the patient following up with his primary care provider. I stressed the importance of the patient returning to the emergency department immediately if his symptoms were to worsen or if he were to develop any dizziness, shortness of breath, difficulty breathing, chest pain, blurry vision, loss of vision, nausea, vomiting, abdominal pain, fever, chills, back pain, or any other complaints. Patient verbalized agreement and understanding with this treatment plan and discharge. Differential Diagnosis Differential Diagnoses: The differential diagnosis associated with the presentation includes ankle sprain ankle strain ankle fracture ankle pain Independent Interpretation I performed an independent interpretation of an: Plain X-Ray Interpretation: My interpretation is in agreement with the radiologist's impression of this imaging study. EXAMINATION: XR ANKLE, RIGHT CLINICAL INFORMATION: Fall. COMPARISON: None available. TECHNIQUE: AP, lateral, and mortise views of the right ankle. FINDINGS: Mild lateral malleolar, anterior ankle and proximal dorsal right foot soft tissue swelling couple vague lucencies distal fibula on oblique view only, but no definite cortical disruption. Mild distal medial fibular periosteal thickening. Mortise is intact. Alignment and articulations are maintained. XR/XR ankle RT min 3V IMPRESSION: No displaced fractures. Mild soft tissue swelling. Should symptoms persist, consider follow-up in 7-10 days. Dictated By: Sallie Bui MD Signed By: Electronically signed by Sallie Bui MD 07/03/23 1203 Radiology Impression Discussion of test interpretation with radiology: I have reviewed the radiologist's reading. Discharge Plan Discharge Clinical Impression: Ankle sprain Patient Disposition: Home, Self-Care Instructions: Ankle Sprain (DC) Additional Instructions: Follow up with your primary care provider. If pain persists >2 weeks, follow up with an orthopedic provider. Return to the emergency department immediately if your symptoms worsen or if you develop any dizziness, shortness of breath, difficulty breathing, chest pain, blurry vision, loss of vision, nausea, vomiting, abdominal pain, fever, chills, back pain, or any other complaints. Prescriptions: No Action ondansetron 8 mg Tablet,Disintegrating 8 mg PO Q8H Qty: 60 4RF prednisone 5 mg Tablet 5 mg PO DAILY Qty: 60 3RF abiraterone 500 mg Tablet 1,000 mg PO DAILY Qty: 60 1RF Rx Instructions: must be taken on empty stomach, at least 1 hr before or 2 hrs after a meal/food atorvastatin 20 mg tablet 20 mg PO DAILY nicotine (polacrilex) 4 mg lozenge 4 mg PO DAILY tramadol 50 mg tablet 50 mg PO Q8H PRN (Reason: pain) 14 Days Qty: 60 0RF zolpidem 5 mg tablet 5 mg PO BEDTIME PRN (Reason: insomnia) Eligard (6 month) 45 mg syringe 45 mg subcut [id number] Referrals: [facility] [place] Group] (If pain persists >2 weeks, call to establish and follow up with an orthopedic provider. ) Yessy Solis MD [Primary Care Provider] - Print Language: Vietnamese
== END 2023-07-03 14:12 | disposition home or self-care (01) ==
PROVIDERS: Emergency Provider Student in an Organized Health Care Education/Training Program; PCP Internal Medicine
DX: S93.401A Sprain of unspecified ligament of right ankle, initial encounter (principal); X50.1XXA Overexertion from prolonged static or awkward postures, initial encounter; Z87.891 Personal history of nicotine dependence; Y93.89 Activity, other specified; Y92.9 Unspecified place or not applicable; Y99.9 Unspecified external cause status
CPT/HCPCS: 73610; 99283

== ENCOUNTER 2023-07-29 08:16 | Outpatient (REF) | payer OTHER, SELFPAY ==
--- NOTE | ~2023-07-29 | CT_ITS ---
EXAMINATION: CT CHEST, ABDOMEN, AND PELVIS WITH CONTRAST CLINICAL INFORMATION: Neoplasm COMPARISON: 01/14/2022, CT scan abdomen TECHNIQUE: Multidetector volumetric CT imaging of the chest, abdomen, and pelvis was obtained without administration of intravenous contrast. Axial MIP volume rendering provided. Sagittal and coronal reformatted images were obtained. This CT examination was performed using dose optimization techniques as appropriate, variously including the following: *Automated exposure control *Adjustment of mA and/or kV according to patient size (this includes techniques or standardized protocols for targeted exams where dose is matched to indication/reason for exam; i.e. extremities or head) *Use of iterative reconstruction technique DLP: 768 mGy-cm FINDINGS: LUNGS: There are mild changes of centrilobular emphysema without lung nodules masses or consolidation. MEDIASTINUM: The mediastinum appears unremarkable. CORONARY ARTERY CALCIFICATION: Not present PLEURA: There is no pleural effusion. No pleural mass or thickening. AXILLA: No lymphadenopathy by size criteria. LIVER, GALLBLADDER, AND BILIARY TREE: Liver is of low attenuation without intrahepatic masses or ductal dilatation. The contracted without stones. PANCREAS: Unremarkable SPLEEN: Unremarkable ADRENAL GLANDS: Unremarkable KIDNEYS AND URETERS: Kidneys are unremarkable except of 2 small exophytic cysts seen on the left measured 1.6 cm in the lower pole and 1.3 cm in the upper pole. There are no solid masses nephrolithiasis or hydronephrosis seen. Ureters are not dilated either. BLADDER: Unremarkable GASTROINTESTINAL TRACT: The small and large bowel appear unremarkable. ABDOMINAL WALL: No significant hernia is appreciated. LYMPH NODES: No evidence of adenopathy by size criteria. VASCULAR: Unremarkable. PELVIC VISCERA: Prostate and seminal vesicles are unremarkable OSSEOUS STRUCTURES: There are widespread osteoblastic metastasis in all visualized bones without compression deformities. No evidence of fractures. CT/CT abdomen pelvis wo IV con IMPRESSION: No significant abnormality.
== END 2023-07-29 08:17 | disposition home or self-care (01) ==
LOC: HO.CT 08:16
PROVIDERS: Visit Provider Urology
DX: G89.3 Neoplasm related pain (acute) (chronic) (principal); C79.51 Secondary malignant neoplasm of bone; C61 Malignant neoplasm of prostate; C64.9 Malignant neoplasm of unspecified kidney, except renal pelvis
CPT/HCPCS: 71250; 74176

== ENCOUNTER 2023-08-18 08:06 | Inpatient (IN) | payer MEDICAID, SELFPAY ==
[2023-08-18] VITALS (9 sets, daily range): BP systolic 144–191; BP diastolic 88–105; PULSE 64–94; RESP 14–20; TEMP 36.1–37; O2SAT 90–98; BMI 24.0
--- NOTE | ~2023-08-18 | XR_ITS ---
EXAMINATION: XR CHEST CLINICAL INFORMATION: Weakness. Covid positive. COMPARISON: Chest CT dated 07/29/2023. TECHNIQUE: Frontal view of the chest was obtained. FINDINGS: Minimal patchy opacity within the right middle lobe, new when compared to the prior chest CT. No additional focal airspace consolidation. No pleural effusion or pneumothorax. Stable cardiomediastinal silhouette. XR/XR chest 1V IMPRESSION: Minimal patchy opacity within the right middle lobe, new when compared to the prior chest CT.
--- NOTE | ~2023-08-18 | CT_ITS ---
EXAMINATION: CT ABDOMEN AND PELVIS WITH CONTRAST CLINICAL INFORMATION: Abdominal pain and vomiting. COMPARISON: None available. TECHNIQUE: Multidetector volumetric images were obtained from the superior aspect of the liver through the pubic symphysis following administration 85 mL of Omnipaque 350 intravenous contrast. Sagittal and coronal reformatted images were obtained on the technologist's workstation. Oral contrast: No This CT examination was performed using dose optimization techniques as appropriate, variously including the following: *Automated exposure control *Adjustment of mA and/or kV according to patient size (this includes techniques or standardized protocols for targeted exams where dose is matched to indication/reason for exam; i.e. extremities or head) *Use of iterative reconstruction technique DLP: 657 mGy-cm FINDINGS: LUNG BASES: There is bibasilar dependent atelectasis. The heart size is normal. LIVER, GALLBLADDER, AND BILIARY TREE: The liver is normal in size, shape, and attenuation. No focal hepatic lesion or biliary ductal dilatation is present. The gallbladder is unremarkable with no evidence of radiopaque gallstones, gallbladder wall thickening, or obvious pericholecystic inflammatory changes. PANCREAS: Unremarkable. SPLEEN: Unremarkable. ADRENAL GLANDS: Unremarkable. KIDNEYS AND URETERS: There is a 1.1 cm exophytic cyst upper pole left kidney. BLADDER: Unremarkable. GASTROINTESTINAL TRACT: There is scattered stool, diverticuli and gas seen throughout the colon without significant distention. Appendix is not visualized. No inflammatory process, free air or free fluid. ABDOMINAL WALL: No significant hernia is appreciated. LYMPH NODES: Normal. VASCULAR: Unremarkable. PELVIC VISCERA: Unremarkable. OSSEOUS STRUCTURES: There is a heterogeneous bone marrow signal throughout dorsal or lumbosacral spine. CT/CT abdomen pelvis w IV con IMPRESSION: No acute intra-abdominal process seen. Mild constipation with scattered colonic diverticulosis. No diverticulitis seen. Left renal cyst. Fleischner guidelines were followed.
--- NOTE | 2023-08-18 08:53 | ED.ABDPAIN ---
HPI - Abdominal Pain General Chief Complaint: Back Pain/Injury Stated Complaint: Back Pain Stage IV Cancer Metastasized Time Seen by Provider: 08/18/23 08:47 Source: patient, family and old records reviewed Mode of arrival: ambulatory Limitations: no limitations History of Present Illness HPI narrative: 57 yo male with stage IV prostate cancer with mets to bones on hormone therapy, HLD, notes last night developed low back pain, n/v severe abdominal pain. He is not able to keep anything down. He has not had fevers, no diarrhea. He has no numbness or bowel or bladder incontinence. covid vaccines and boostered. MD elicited complaint: abdominal pain Pertinent past history: other (metastatic prostate cancer) Onset (ago): day(s) (1) Pain Consistency: constant Location: other (low back and entire abdomen) Severity: severe Quality: aching Radiation: none Migration to: no migration Exacerbating factors: movement Relieving factors: nothing Associated symptoms: nausea and vomiting Related Data Home Medications Medication Instructions Recorded Confirmed atorvastatin 20 mg tablet 20 mg PO DAILY 01/17/22 04/15/23 nicotine (polacrilex) 4 mg buccal 4 mg PO DAILY 01/17/22 04/15/23 lozenge zolpidem 5 mg tablet 5 mg PO BEDTIME PRN insomnia 08/11/22 04/15/23 leuprolide acetate (6 month) 45 mg 45 mg subcut [id number] 06/11/23 (6 month) subcutaneous syringe ([employer] [place]) Previous Rx's Medication Instructions Recorded tramadol 50 mg tablet 50 mg PO Q8H PRN pain 14 days #60 02/05/22 tabs ondansetron 8 mg disintegrating 8 mg PO Q8H #60 tabs 05/28/23 tablet prednisone 5 mg tablet 5 mg PO DAILY #60 tabs 06/05/23 abiraterone 500 mg tablet 1,000 mg (2 x 500 mg) PO DAILY #60 08/03/23 tabs Allergies Allergy/AdvReac Type Severity Reaction Status Date / Time No Known Allergies Allergy Verified 06/11/23 10:10 [No Known Allergies*] Review of Systems Review of Systems Constitutional : No Weight loss, No Fever, No Chills, ENT/Mouth : No Hearing loss, No Ear Pain, No Nasal Congestion, No Sinus Pain, No Hoarseness, No sore throat, No Rhinorrhea, No Swallowing Difficulty Cardiovascular : No Chest Pain, No SOB Respiratory : No Cough, No Dyspnea Gastrointestinal : pos Nausea, pos Vomiting, No Diarrhea, No abdominal Pain, No Hematochezia, No Melena Genitourinary : No Dysuria, No Urinary Frequency, No Hematuria, No Urinary Incontinence, Musculoskeletal : positive back pain Skin : No Skin Lesions, No rash Neuro : No Weakness, No Numbness, No Paresthesias, no loss of bowel or bladder incontinence, no saddle anesthesia All other systems reviewed and are negative [facility] Past Medical History Attestation statement: The following information was validated with the patient. Medical History High cholesterol Prostate cancer Surgical History H/O elbow surgery History of appendectomy Family History Family History Father Prostate CA Paternal Grandmother Lung cancer Maternal Grandmother Breast cancer Paternal Aunt Lung cancer Social History Household Members: None Housing: House Are you a primary child care associate teacher to a significant other at home: No Do you presently have visiting nurse or other home services: No Alcohol intake: never Patient Tobacco Use Status: Former Tobacco user Quit Date: 12/2021 Tobacco use type: Cigarette Smoked in Last 30 Days: Yes Substance Use Type: Marijuana Advance Directives: Yes Advance Directives on File: Yes Advance Directives Date on File: 01/20/22 service: No Current occupational status: employed Physical Exam ED Vital Signs: Vital Signs - 24 hr 08/18/23 08:14 08/18/23 09:46 08/18/23 09:48 Temperature 98.0 F Pulse Rate 70 64 Respiratory Rate 20 18 17 Blood Pressure 191/105 H 161/95 H Pulse Oximetry 98 90 L 96 Oxygen Delivery Method Room Air Room Air Nasal Cannula Oxygen Flow Rate 1 BMI result Body Mass Index 24.0 Appearance: Alert. Oriented X3. Active vomiting, mild acute distress. Eyes: Pupils equal, round and reactive to light. ENT: Pharynx dry MM Neck: Normal inspection. Neck supple. CVS: Normal heart rate and rhythm. Pulses normal. Respiratory: No respiratory distress. Breath sounds normal. Abdomen: Soft and diffuse ttp no rebound Skin: Skin warm and dry. pale skin color. Normal skin turgor. Extremities: No lower extremity edema. Neuro: Oriented X 3. No motor deficit. No sensory deficit. SILT inner thigh - motor LE intact Course Course Course Narrative: lactic acid elevated due to dehydration and not infectino or severe sepsis 942am Reevaluation(s) Reevaluation #1: + for COVID - sat did drop to 90% likely after medications but CXR and IV dexamethasone ordered Medical Decision Making Medical Decision Making [facility] Narrative: 57 yo male seen and treated here for metastatic prostate cancer with known lytic lesions to spine on hormone therapy presents with diffuse abdominal pain n/v no fevers and low back pain cannot keep any medications down - symptoms started last night - at this time will need basic labs, IVF x 2L, IV dilaudid for pain - possible stone, worsening tumor burden, pathologic fracture, dehydration. He has no b/b incontinece, no saddle anesthesia and is NV intact distally cauda equina unlikely Differential Diagnosis Differential Diagnoses: The differential diagnosis associated with the presentation includes possible stone, worsening tumor burden, pathologic fracture, dehydration no b/b incontinece, no saddle anesthesia and is NV intact distally cauda equina unlikely Admission/Observation Consideration of admission/observation: Escalation of care including admission/observation considered Lab Data [facility] Lab Attestation statement: I reviewed the patient's lab results. 08/18/23 09:20 08/18/23 09:20 Labs: Lab Results 08/18/23 Range/Units 09:20 WBC 10.3 (4.8-10.8) X10*3/uL RBC 4.78 (4.60-5.80) X10*6/uL Hgb 13.9 L (14.0-18.0) g/dl Hct 40.4 L (42.0-52.0) % MCV 84.5 (80.0-98.0) fL MCH 29.1 (27.0-33.0) pg MCHC 34.4 (31.0-36.0) g/dl RDW 12.8 (11.0-16.0) % Plt Count 180 (160-400) X10*3/uL MPV 9.9 (9.4-12.4) fL Immature Gran % (Auto) 0.4 (0.0-0.4) % Neut % (Auto) 79.9 H (45-73) % Lymph % (Auto) 12.4 L (20-40) % Marion % (Auto) 6.4 (2-11) % Eos % (Auto) 0.4 (0-4) % Baso % (Auto) 0.5 (0-2) % Lymph # (Auto) 1.3 (1.2-4.9) X10*3/uL Marion # (Auto) 0.7 (0.1-1.2) X10*3/uL Eos # (Auto) 0.0 (0.0-0.4) X10*3/uL Baso # (Auto) 0.1 (0.0-0.2) X10*3/uL Abs Immat Gran (auto) 0.04 H (0.00-0.03) X10*3/uL Absolute Neuts (auto) 8.2 (2.0-8.3) x10*3/uL Absolute Nucleated RBC 0.000 (0.0-0.012) X10*3/uL Nucleated RBC % (auto) 0.0 (0.0-0.2) /100WBC Sodium 140 (135-145) mmol/L Potassium 2.7 L D (3.3-5.1) mmol/L Chloride 107 (96-108) mmol/L Carbon Dioxide 23 (22-29) mmol/L Anion Gap 13 (12-20) BUN 11 (9-16) mg/dL Creatinine 0.64 (0.5-1.4) mg/dL Estim Creat Clear Calc 154.0 Estimated GFR > 60 Random Glucose 151 H (60-115) mg/dL Lactic Acid 2.8 H* (0.5-2.0) mmol/L Calcium 8.7 D (8.4-10.2) mg/dL Magnesium 2.2 (1.6-2.6) mg/dL Total Bilirubin 0.5 (0.0-1.0) mg/dL Direct Bilirubin 0.2 (0.0-0.5) mg/dL AST 12 (5-37) U/L ALT 14 (0-40) U/L Alkaline Phosphatase 82 (39-117) U/L Total Protein 6.8 (6.5-8.0) g/dL Albumin 4.0 (3.5-5.0) g/dL Lipase 8 (8-78) U/L COVID-19 (TIESHA) Positive A (Negative) COVID-19 Clin Com See Note Influenza Type A (JONAS) Negative (Negative) Influenza Type B (JONAS) Negative (Negative) Influenza A & B Note See Note Independent Interpretation I performed an independent interpretation of an: Plain X-Ray and CT Scan Radiology Impression Discussion of test interpretation with radiology: I have reviewed the radiologist's reading. Independent Historian Clinical information obtained from an independent historian. History obtained from or confirmed by: Other External Record Review External record reviewed: Inpatient record Medications Administered Generic Name Dose Route Start Last Admin Trade Name Freq PRN Reason Stop Dose Admin Potassium Chloride 10 meq in 100 mls @ 100 mls/hr 08/18/23 10:00 08/18/23 10:01 Potassium Chloride/H20 IV 08/18/23 13:59 100 mls/hr Q1H KARTHIK Administration Discontinued Medications Generic Name Dose Route Start Last Admin Trade Name Freq PRN Reason Stop Dose Admin Hydromorphone HCl 1 mg 08/18/23 08:48 08/18/23 09:10 Hydromorphone Hcl 1 Mg/Ml Syringe IVPUSH 08/18/23 08:49 1 mg ONCE ONE Administration Protocol Sodium Chloride 1,000 mls @ 999 mls/hr 08/18/23 09:00 08/18/23 09:08 Ns IV 08/18/23 10:00 999 mls/hr .Q1H1M KARTHIK Administration Iohexol 85 ml 08/18/23 10:37 08/18/23 10:37 Iohexol 350 Mg/Ml 75 Ml Infus..Btl IV 08/18/23 10:38 85 ml ONCE ONE Administration Ondansetron HCl 4 mg 08/18/23 08:48 08/18/23 09:08 Ondansetron Hcl 4 Mg/2 Ml Vial IVPUSH 08/18/23 08:49 4 mg ONCE ONE Administration Discharge Plan Discharge Clinical Impression: COVID-19, Acute hypokalemia Acute lumbar back pain Qualifiers: Back pain laterality: bilateral Sciatica presence: without sciatica Qualified Code(s): M54.50 - Low back pain, unspecified Nausea & vomiting Qualifiers: Vomiting type: unspecified Qualified Code(s): R11.2 - Nausea with vomiting, unspecified Patient Disposition: Still a Patient Prescriptions: No Action ondansetron 8 mg Tablet,Disintegrating 8 mg PO Q8H Qty: 60 4RF prednisone 5 mg Tablet 5 mg PO DAILY Qty: 60 3RF abiraterone 500 mg Tablet 1,000 mg PO DAILY Qty: 60 1RF Rx Instructions: must be taken on empty stomach, at least 1 hr before or 2 hrs after a meal/food atorvastatin 20 mg tablet 20 mg PO DAILY nicotine (polacrilex) 4 mg lozenge 4 mg PO DAILY tramadol 50 mg tablet 50 mg PO Q8H PRN (Reason: pain) 14 Days Qty: 60 0RF zolpidem 5 mg tablet 5 mg PO BEDTIME PRN (Reason: insomnia) Annabelle (6 month) 45 mg syringe 45 mg subcut [id number]
[2023-08-18] MEDS: ondansetron HCL 4 MG/2 ML VIAL IVPUSH (09:08)
[2023-08-18] MEDS: 0.9 % Sodium Chloride 1,000 ML 999 ML IV ×2 (09:08→10:58)
[2023-08-18] MEDS: HYDROmorphone HCl 1 MG/ML SYRINGE IVPUSH (09:10)
[2023-08-18 09:28] LABS: MANUAL DIFF FLAG NO
[2023-08-18 09:30] LABS: Basophils Absolute Auto 0.1 X10*3/uL (0.0-0.2); Basophils Percent Auto 0.5 % (0-2); Eosinophils Percent Auto 0.4 % (0-4); Hematocrit 40.4 % (42.0-52.0); Hemoglobin 13.9 g/dl (14.0-18.0); Imm Gran Abs Auto 0.04 X10*3/uL (0.00-0.03); Imm Gran Pct Auto 0.4 % (0.0-0.4); Lymphocytes Absolute Auto 1.3 X10*3/uL (1.2-4.9); Lymphocytes Percent Auto 12.4 % (20-40); Mean Corpuscular HGB Conc 34.4 g/dl (31.0-36.0); Mean Corpuscular Hemoglobin 29.1 pg (27.0-33.0); Mean Corpuscular Volume 84.5 fL (80.0-98.0); Mean Platelet Volume 9.9 fL (9.4-12.4); Monocytes Absolute Auto 0.7 X10*3/uL (0.1-1.2); Monocytes Percent Auto 6.4 % (2-11); Neutrophils Absolute Auto 8.2 x10*3/uL (2.0-8.3); Neutrophils Percent Auto 79.9 % (45-73); Platelet Count 180 X10*3/uL (160-400); Red Blood Count 4.78 X10*6/uL (4.60-5.80); Red Cell Distribution Width 12.8 % (11.0-16.0); White Blood Count 10.3 X10*3/uL (4.8-10.8)
[2023-08-18 09:42] LABS: Lactic Acid 2.8 mmol/L (0.5-2.0)
[2023-08-18 09:45] LABS: Alanine Aminotransferase 14 U/L (0-40); Alkaline Phosphatase 82 U/L (39-117); Anion Gap 13 (12-20); Aspartate Amino Transferase 12 U/L (5-37); Bilirubin Direct 0.2 mg/dL (0.0-0.5); Bilirubin Total 0.5 mg/dL (0.0-1.0); Blood Urea Nitrogen 11 mg/dL (9-16); Calcium 8.7 mg/dL (8.4-10.2); Carbon Dioxide 23 mmol/L (22-29); Chloride 107 mmol/L (96-108); Estimated Glomerular Filt Rate > 60; Glucose Random 151 mg/dL (60-115); Lipase 8 U/L (8-78); Magnesium 2.2 mg/dL (1.6-2.6); Potassium 2.7 mmol/L (3.3-5.1); Sodium 140 mmol/L (135-145); Total Protein 6.8 g/dL (6.5-8.0)
--- NOTE | 2023-08-18 09:47 | PC.NURSE ---
no pain, no nausea, nad, so much better
[2023-08-18 09:58] LABS: COVID-19 Test Positive (Negative); IDNOW Serial# 9DB6401D
[2023-08-18] MEDS: Potassium Chloride/H20 10 MEQ/100 ML PIGGYBACK 100 MEQ IV ×4 (10:01→13:42)
[2023-08-18 10:10] LABS: IDNOW Serial# 08D9AD1C; Influenza A Negative (Negative); Influenza B2 Negative (Negative)
[2023-08-18] MEDS: iohexoL 350 MG/ML 75 ML INFUS..BTL 85 ML IV (10:37)
[2023-08-18] MEDS: dexAMETHasone sod phosphate 4 MG/ML VIAL 6 MG IVPUSH (10:58)
[2023-08-18] MEDS: Potassium Chloride Packet 20 MEQ PACKET PO (11:20)
[2023-08-18 11:27] LABS: Reflex Lactate? Lactic Acid Added
[2023-08-18 11:45] LABS: Procalcitonin < 0.02 ng/mL
[2023-08-18 11:48] LABS: Appearance Urine Cloudy; Color Urine Yellow; Glucose Urine UA Negative (Negative); Leukocyte Esterase Urine Negative (Negative); Nitrite Urine Negative (Negative); PH 7.5 (5.0-9.0); Specific Gravity - Urine >= 1.030 (1.005-1.025); UMIC TRIGGER UACC YES; Urine Blood Small (1+) (Negative); Urine Ketones Negative (Negative); Urine Protein Negative (Neg-Trace)
[2023-08-18 11:52] LABS: Bacteria Urine None Seen (None Seen); Hyaline Casts Urine 0-2 /LPF (0-2); Squamous Epithelial Cell Urine 0-2 /HPF (0-2); WBC Urine 0-5 /HPF (0-5)
[2023-08-18 12:08] LABS: ~Lactic Acid-LAB USE ONLY 2.5 mmol/L (0.5-2.0)
[2023-08-18 13:15] LABS: C Reactive Protein 0.15 mg/dL (< or = 0.50); Lactate Dehydrogenase 148 U/L (118-273)
[2023-08-18 13:35] LABS: Ferritin 317 ng/mL (20-250)
--- NOTE | 2023-08-18 13:42 | PHA.MEDREC ---
Pharmacy Consult ? Medication Reconciliation Pharmacy has completed the medication reconciliation.
[2023-08-18 13:51] LABS: Reflex Lactate? 2 Y
--- NOTE | 2023-08-18 14:00 | PM.IMHP ---
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 He presents with 1 day of nausea, vomiting, severe back pain and lower abdominal pain. No fever, chills, cough, dyspnea, or sore throat. No leg weakness, numbness, saddle anesthesia, or bowel/bladder dysfunction. No sick contacts. He is fully vaccinated against Covid-19. Here in the ED he tested positive for Covid-19 infection and has a small patchy infiltrate in the RML. He was mildly hypoxic with RA SaO2 of 90%; currently 96% on 1L via NC. He was given dexamethasone 6 mg IV once. Potassium was low at 2.7 [magnesium normal at 2.2] and he was given 20 mEq of PO KCl and 40 mEq of IV KCl. Lactate 2.8. He was given 1L of IV NS. Also given 1 mg of IV hydrmorphone. Review of Systems Review of Systems: Yes all other systems are reviewed and are negative [facility] Medical History High cholesterol Prostate cancer Family History Father Prostate CA Paternal Grandmother Lung cancer Maternal Grandmother Breast cancer Paternal Aunt Lung cancer Surgical History H/O elbow surgery History of appendectomy Social History Household Members: None Housing: House Are you a primary nurse healthcare manager to a significant other at home: No Do you presently have visiting nurse or other home services: No Alcohol intake: never Patient Tobacco Use Status: Former Tobacco user Quit Date: 12/2021 Tobacco use type: Cigarette Smoked in Last 30 Days: Yes Substance Use Type: Marijuana Advance Directives: Yes Advance Directives on File: Yes Advance Directives Date on File: 01/20/22 service: No Current occupational status: employed Meds Allergies Allergy/AdvReac Type Severity Reaction Status Date / Time No Known Allergies Allergy Verified 06/11/23 10:10 [No Known Allergies*] Active Medications: Current Medications Atorvastatin Calcium (Atorvastatin Calcium 20 Mg Tablet) 20 mg PO DAILY KARTHIK Dexamethasone (Dexamethasone 6 Mg Tablet) 6 mg PO DAILY KARTHIK Stop: 08/27/23 09:01 Sodium Chloride (Ns) 1,000 mls @ 100 mls/hr IVCONT .Q10H KARTHIK Morphine Sulfate (Morphine Sulfate 2 Mg/Ml Cartridge) 2 mg IVPUSH Q2H PRN; Protocol PRN Reason: severe pain Nicotine Polacrilex (Nicotine Polacrilex Lozenge 4 Mg Lozenge) 4 mg BUCCAL Q1H PRN PRN Reason: Nicotine Cravings Non-Formulary Medication (Abiraterone) 1,000 mg PO DAILY KARTHIK Non-Formulary Medication (Leuprolide Acetate (6 Month) [Eligard (6 Month)]) 45 mg SUBCUT [id number] KARTHIK Tramadol HCl (Tramadol Hcl 50 Mg Tablet) 50 mg PO Q6H PRN PRN Reason: moderate pain Home Medications Medication Instructions Recorded Confirmed Last Taken Type atorvastatin 20 mg tablet 20 mg PO DAILY 01/17/22 08/18/23 08/17/23 History nicotine (polacrilex) 4 mg buccal 4 mg PO Q2H 01/17/22 08/18/23 08/17/23 History lozenge leuprolide acetate (6 month) 45 mg 45 mg subcut [id number] 06/11/23 08/18/23 08/17/23 History (6 month) subcutaneous syringe (Eligard) hydrocodone 5 mg-acetaminophen 325 1 tab PO Q6H PRN pain 08/18/23 08/18/23 08/17/23 History mg tablet tramadol 50 mg tablet 50 mg PO Q6H PRN pain 08/18/23 08/18/23 08/17/23 History Physical Exam Vital Signs and Narrative: Vital Signs: Last Vital Signs Temp 98.0 F 08/18/23 08:14 Pulse 79 08/18/23 13:43 Resp 19 08/18/23 13:43 BP 150/89 H 08/18/23 13:43 Pulse Ox 98 08/18/23 13:43 O2 Del Method Room Air 08/18/23 13:43 O2 Flow Rate 1 08/18/23 09:48 BMI result Body Mass Index 24.0 Gen: in no acute distress HEENT: sclera anicteric, moist mucus membranes Neck: supple Lungs: clear to auscultation bilaterally Heart: regular rate and rhythm, no murmurs Abd: soft, minimally tender, non-distended Back: tenderness to mid-lumbar spine Ext: no edema Skin: warm/well-perfused Neuro: alert and oriented x3, normal strength in lower extremities Psych: appropriate affect Results Labs 08/18/23 09:20 08/18/23 09:20 Labs: Laboratory Results - last 24 hr 08/18/23 08/18/23 08/18/23 09:20 11:42 11:49 MCV 84.5 MCH 29.1 MCHC 34.4 RDW 12.8 Plt Count 180 MPV 9.9 Immature Gran % (Auto) 0.4 Neut % (Auto) 79.9 H Lymph % (Auto) 12.4 L [place] % (Auto) 6.4 Eos % (Auto) 0.4 Baso % (Auto) 0.5 Lymph # (Auto) 1.3 [place] # (Auto) 0.7 Eos # (Auto) 0.0 Baso # (Auto) 0.1 Abs Immat Gran (auto) 0.04 H Absolute Neuts (auto) 8.2 Absolute Nucleated RBC 0.000 Nucleated RBC % (auto) 0.0 Anion Gap 13 Estim Creat Clear Calc 154.0 Estimated GFR > 60 Random Glucose 151 H Lactic Acid 2.8 H* Lactic Acid F/U @ 2Hr 2.5 H* Calcium 8.7 D Magnesium 2.2 Ferritin 317 H Total Bilirubin 0.5 Direct Bilirubin 0.2 AST 12 ALT 14 Alkaline Phosphatase 82 Lactate Dehydrogenase 148 C-Reactive Protein 0.15 Total Protein 6.8 Albumin 4.0 Lipase 8 Procalcitonin < 0.02 Urine Color Yellow Urine Appearance Cloudy Urine pH 7.5 Ur Specific [place] >= 1.030 H Urine Protein Negative Urine Glucose (UA) Negative Urine Ketones Negative Urine Blood Small (1+) H Urine Nitrite Negative Ur Leukocyte Esterase Negative Urine RBC 6-10 H Urine WBC 0-5 Ur Squamous Epith Cells 0-2 Urine Bacteria None Seen Hyaline Casts 0-2 COVID-19 (TIESHA) Positive A COVID-19 Clin Com See Note Influenza Type A (JONAS) Negative Influenza Type B (JONAS) Negative Influenza A & B Note See Note Imaging Radiologist's Impressions: Impressions Chest X-Ray 08/18/23 10:28 IMPRESSION: Minimal patchy opacity within the right middle lobe, new when compared to the prior chest CT. Abdomen/Pelvis CT 08/18/23 10:30 IMPRESSION: No acute intra-abdominal process seen. Mild constipation with scattered colonic diverticulosis. No diverticulitis seen. Left renal cyst. Fleischner guidelines were followed. 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 presenting with 1d of N/V/abd pain/back pain and found to have hypokalemia and Covid-19 infection with mild hypoxia acute hypoxic resp failure due to Covid-19 infection - admit to isolation unit, give dexamethasone 6 mg/d x 10d, give remdesivir while hospitalized; inflammatory markers low hypoK - repleted IV/PO, recheck level in AM; likely due to vomiting lactic acidosis - not septic, due to dehydration, continue NS metastatic prostate CA - continue abiraterone; hold prednisone 5 mg/d while on dexamethasone - to keep appt with [facility] on 08/26 for PET scan and eventual transition to Mona-177 therapy - tramadol + IV morphine for pain control tobacco abuse - NRT VTE ppx - LMWH code - full dispo - anticipate home I anticipate that the patient will stay at least 2 midnights as an inpatient in the hospital due to the above reasons. It is neither reasonable nor safe to care for them in a less acute setting. Quality Stroke Does the patient have a stroke diagnosis?: No VTE Prior VTE?: No VTE Risk Level:: Medical - moderate - high VTE Device Contraindication: N/A - Device Ordered VTE Drug Contraindication: N/A - Med Ordered
[2023-08-18 14:51] LABS: ~Lactic Acid-LAB USE ONLY 2.4 mmol/L (0.5-2.0)
[2023-08-18] MEDS: Nicotine Polacrilex Lozenge 4 MG LOZENGE BUCCAL (15:41)
[2023-08-18] MEDS: Enoxaparin Sodium 40 MG/0.4 ML SYRINGE SUBCUT (15:42)
[2023-08-18] MEDS: 0.9 % Sodium Chloride 1,000 ML 100 ML IVCONT ×2 (15:43→22:57)
--- NOTE | 2023-08-18 16:03 | MHC.EDTECH ---
This pct assumed care of pt at 1500 ,vitals taken and pt belonging list done .
[2023-08-18] MEDS: Remdesivir 200 MG in 0.9 % Sodium Chloride 210 ML 105 MG IV (16:44)
[2023-08-18] MEDS: Morphine Sulfate 2 MG/ML CARTRIDGE IVPUSH (22:57)
[2023-08-18] MEDS: 0.9 % Sodium Chloride Flush 3 ML SYRINGE IVFLUSH (22:58)
[2023-08-19 07:28] LABS: Hematocrit 42.8 % (42.0-52.0); Hemoglobin 14.5 g/dl (14.0-18.0); Mean Corpuscular HGB Conc 33.9 g/dl (31.0-36.0); Mean Corpuscular Volume 85.6 fL (80.0-98.0); Platelet Count 212 X10*3/uL (160-400); Red Cell Distribution Width 12.9 % (11.0-16.0); White Blood Count 13.6 X10*3/uL (4.8-10.8)
[2023-08-19 07:50] LABS: Anion Gap 15 (12-20); Blood Urea Nitrogen 12 mg/dL (9-16); Carbon Dioxide 23 mmol/L (22-29); Chloride 104 mmol/L (96-108); Creatinine Clr Calc Pharmacy 144.9; Estimated Glomerular Filt Rate > 60; Glucose Random 137 mg/dL (60-115); Magnesium 2.5 mg/dL (1.6-2.6); Potassium 3.4 mmol/L (3.3-5.1); Sodium 139 mmol/L (135-145)
[2023-08-19 07:51] VITALS: BP 148/88; PULSE 80; RESP 20; TEMP 36.5; O2SAT 98
[2023-08-19] MEDS: dexAMETHasone 6 MG TABLET PO (09:06)
[2023-08-19] MEDS: 0.9 % Sodium Chloride Flush 3 ML SYRINGE IVFLUSH (09:06)
[2023-08-19] MEDS: Atorvastatin Calcium 20 MG TABLET PO (09:06)
--- NOTE | 2023-08-19 09:30 | MHC.CM.PN ---
EMR REVIEWED, PT W/STAGE 4 PROSTATE CA W/METS TO BONE/PAIN AND COVID 19, CM ATTEMPTED TO CONTACT PT VIA CELL PHONE AND ROOM PHONE X2 HOWEVER NO ANSWER, CM CONTACTED PT'S FATHER/HCA WHO HAS DIFFICULTY HEARING OVER PHONE AND PASSED PHONE TO HIS LASHAUN, LASHAUN REPORTS PT LIVES ALONE, USES A CANE ON OCCASION AND FAMILY ASSISTS W/SHOPPING/CLEANING/LAUNDRY, LASHAUN REPORTS FAMILY IS VERY SUPPORTIVE OF PT AND HAVE OFFERED PT TO MOVE IN W/THEM HOWEVER PT HAS BEEN WANTING TO STAY INDEP POSSIBLE, PT WILL BE ABLE TO STAY W/FAMILY OR FAMILY WILL STAY W/PT ONCE CA PROGRESSES TO THE POINT OF PT NEEDING 24HR CARE AT HOME OR HOSPICE. LASHAUN VERIFIES PCP AND REPORTS PT HAS A NEW ONCOLOGIST IN [place] HOWEVER HAD BEEN SEEING DR SALAZAR, PT ALSO SEE DR PEDERSEN FOR UROLOGY.HCP IS PT'S FATHER CAROLE AND MOTHER ROBBY AND COPY ON FILE. ANTIC PT WILL DC HOME W/FAMILY SUPPORT VS [facility] SERVICES.
--- NOTE | 2023-08-19 09:45 | P.DS_ITS ---
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 He presents with 1 day of nausea, vomiting, severe back pain and lower abdominal pain. No fever, chills, cough, dyspnea, or sore throat. No leg weakness, numbness, saddle anesthesia, or bowel/bladder dysfunction. No sick contacts. He is fully vaccinated against Covid-19. Here in the ED he tested positive for Covid-19 infection and has a small patchy infiltrate in the RML. He was mildly hypoxic with RA SaO2 of 90%; currently 96% on 1L via NC. He was given dexamethasone 6 mg IV once. Potassium was low at 2.7 [magnesium normal at 2.2] and he was given 20 mEq of PO KCl and 40 mEq of IV KCl. Lactate 2.8. He was given 1L of IV NS. Also given 1 mg of IV hydrmorphone. He was admitted to the hospitalist service. Abdominopelvic CT showed only mild diverticulosis. He was quickly weaned off of oxygen. He received 2 doses of IV remdesivir and 2 doses of dexamethasone. Potassium was repleted. His symptoms resolved completely and he was discharged home with 8 more days of dexamethasone [during which prednisone will be held]. He will follow up as scheduled with [facility] for PET scan and Mona-177 therapy,. Time Attestation Discharge coordination time: Greater than 30 minutes Quality: Safe Use of Opioids Does Pt have an Active Cancer Diagnosis on the Problem List?: No Quality: Stroke Does the patient have a stroke diagnosis?: No Physical Exam Vital Signs: Vital Signs: Last Vital Signs Temp 97.7 F 08/19/23 07:51 Pulse 80 08/19/23 07:51 Resp 20 08/19/23 07:51 BP 148/88 H 08/19/23 07:51 Pulse Ox 98 08/19/23 07:51 O2 Del Method Room Air 08/19/23 07:51 O2 Flow Rate 1 08/18/23 09:48 BMI result Body Mass Index 24.0 Gen: in no acute distress HEENT: sclera anicteric, moist mucus membranes Neck: supple Lungs: clear to auscultation bilaterally Heart: regular rate and rhythm, no murmurs Abd: soft, non-tender, non-distended Ext: no edema Skin: warm/well-perfused Neuro: alert and oriented x3, no focal findings Psych: appropriate affect DS: Data Data Completed and Pending Completed studies during hospitalization [Text1]: Laboratory Results WBC 13.6 X10*3/uL (4.8-10.8) H 08/19/23 06:40 RBC 5.00 X10*6/uL (4.60-5.80) 08/19/23 06:40 Hgb 14.5 g/dl (14.0-18.0) 08/19/23 06:40 Hct 42.8 % (42.0-52.0) 08/19/23 06:40 MCV 85.6 fL (80.0-98.0) 08/19/23 06:40 MCH 29.0 pg (27.0-33.0) 08/19/23 06:40 MCHC 33.9 g/dl (31.0-36.0) 08/19/23 06:40 RDW 12.9 % (11.0-16.0) 08/19/23 06:40 Plt Count 212 X10*3/uL (160-400) 08/19/23 06:40 MPV 10.0 fL (9.4-12.4) 08/19/23 06:40 Immature Gran % (Auto) 0.4 % (0.0-0.4) 08/18/23 09:20 Neut % (Auto) 79.9 % (45-73) H 08/18/23 09:20 Lymph % (Auto) 12.4 % (20-40) L 08/18/23 09:20 [place] % (Auto) 6.4 % (2-11) 08/18/23 09:20 Eos % (Auto) 0.4 % (0-4) 08/18/23 09:20 Baso % (Auto) 0.5 % (0-2) 08/18/23 09:20 Lymph # (Auto) 1.3 X10*3/uL (1.2-4.9) 08/18/23 09:20 [place] # (Auto) 0.7 X10*3/uL (0.1-1.2) 08/18/23 09:20 Eos # (Auto) 0.0 X10*3/uL (0.0-0.4) 08/18/23 09:20 Baso # (Auto) 0.1 X10*3/uL (0.0-0.2) 08/18/23 09:20 Abs Immat Gran (auto) 0.04 X10*3/uL (0.00-0.03) H 08/18/23 09:20 Absolute Neuts (auto) 8.2 x10*3/uL (2.0-8.3) 08/18/23 09:20 Absolute Nucleated RBC 0.000 X10*3/uL (0.0-0.012) 08/19/23 06:40 Nucleated RBC % (auto) 0.0 /100WBC (0.0-0.2) 08/19/23 06:40 Sodium 139 mmol/L (135-145) 08/19/23 06:40 Potassium 3.4 mmol/L (3.3-5.1) D 08/19/23 06:40 Chloride 104 mmol/L (96-108) 08/19/23 06:40 Carbon Dioxide 23 mmol/L (22-29) 08/19/23 06:40 Anion Gap 15 (12-20) 08/19/23 06:40 BUN 12 mg/dL (9-16) 08/19/23 06:40 Creatinine 0.68 mg/dL (0.5-1.4) 08/19/23 06:40 Estim Creat Clear Calc 144.9 08/19/23 06:40 Estimated GFR > 60 08/19/23 06:40 Random Glucose 137 mg/dL (60-115) H 08/19/23 06:40 Lactic Acid 2.8 mmol/L (0.5-2.0) H* 08/18/23 09:20 Lactic Acid F/U @ 2Hr 2.5 mmol/L (0.5-2.0) H* 08/18/23 11:49 Lactic Acid F/U @ 4Hr 2.4 mmol/L (0.5-2.0) H* 08/18/23 14:10 Calcium 9.0 mg/dL (8.4-10.2) 08/19/23 06:40 Magnesium 2.5 mg/dL (1.6-2.6) 08/19/23 06:40 Ferritin 317 ng/mL (20-250) H 08/18/23 09:20 Total Bilirubin 0.5 mg/dL (0.0-1.0) 08/18/23 09:20 Direct Bilirubin 0.2 mg/dL (0.0-0.5) 08/18/23 09:20 AST 12 U/L (5-37) 08/18/23 09:20 ALT 14 U/L (0-40) 08/18/23 09:20 Alkaline Phosphatase 82 U/L (39-117) 08/18/23 09:20 Lactate Dehydrogenase 148 U/L (118-273) 08/18/23 09:20 C-Reactive Protein 0.15 mg/dL (< or = 0.50) 08/18/23 09:20 Total Protein 6.8 g/dL (6.5-8.0) 08/18/23 09:20 Albumin 4.0 g/dL (3.5-5.0) 08/18/23 09:20 Lipase 8 U/L (8-78) 08/18/23 09:20 Procalcitonin < 0.02 ng/mL 08/18/23 09:20 Urine Color Yellow 08/18/23 11:42 Urine Appearance Cloudy 08/18/23 11:42 Urine pH 7.5 (5.0-9.0) 08/18/23 11:42 Ur Specific [place] >= 1.030 (1.005-1.025) H 08/18/23 11:42 Urine Protein Negative mg/dL (Neg-Trace) 08/18/23 11:42 Urine Glucose (UA) Negative mg/dL (Negative) 08/18/23 11:42 Urine Ketones Negative mg/dL (Negative) 08/18/23 11:42 Urine Blood Small (1+) (Negative) H 08/18/23 11:42 Urine Nitrite Negative (Negative) 08/18/23 11:42 Ur Leukocyte Esterase Negative (Negative) 08/18/23 11:42 Urine RBC 6-10 /HPF (0-2) H 08/18/23 11:42 Urine WBC 0-5 /HPF (0-5) 08/18/23 11:42 Ur Squamous Epith Cells 0-2 /HPF (0-2) 08/18/23 11:42 Urine Bacteria None Seen (None Seen) 08/18/23 11:42 Hyaline Casts 0-2 /LPF (0-2) 08/18/23 11:42 COVID-19 (TIESHA) Positive (Negative) A 08/18/23 09:20 COVID-19 Clin Com See Note 08/18/23 09:20 Influenza Type A (JONAS) Negative (Negative) 08/18/23 09:20 Influenza Type B (JONAS) Negative (Negative) 08/18/23 09:20 Influenza A & B Note See Note 08/18/23 09:20 Impressions Chest X-Ray 08/18/23 10:28 IMPRESSION: Minimal patchy opacity within the right middle lobe, new when compared to the prior chest CT. Abdomen/Pelvis CT 08/18/23 10:30 IMPRESSION: No acute intra-abdominal process seen. Mild constipation with scattered colonic diverticulosis. No diverticulitis seen. Left renal cyst. Fleischner guidelines were followed. Discharge Plan Discharge Anticipated Discharge Date/Time: 08/19/23 11:42 Patient Disposition: Home, Self-Care Discharge Diagnosis: hypokalemia, Covid-19 infection, hypoxia, diverticulosis, metastatic prostate cancer Referrals: Yessy Solis MD [Primary Care Provider] - 1 Week Discharge Medications: New dexamethasone 6 mg Tablet 6 mg PO DAILY Qty: 8 0RF Continued ondansetron 8 mg Tablet,Disintegrating 8 mg PO Q8H Qty: 60 4RF abiraterone 500 mg Tablet 1,000 mg PO DAILY Qty: 60 1RF Rx Instructions: must be taken on empty stomach, at least 1 hr before or 2 hrs after a meal/food hydrocodone-acetaminophen 5-325 mg tablet 1 tab PO Q6H PRN (Reason: pain) tramadol 50 mg tablet 50 mg PO Q6H PRN (Reason: pain) atorvastatin 20 mg tablet 20 mg PO DAILY nicotine (polacrilex) 4 mg lozenge 4 mg PO Q2H Eligard (6 month) 45 mg syringe 45 mg subcut [id number] Held prednisone 5 mg Tablet 5 mg PO DAILY Qty: 60 3RF Hold Instructions: Resume on 08/28/23. Discharge Orders: Discharge Order (Routine); Ordered 08/19/23 Ordered By: Angela Smith Diet: Advance to usual diet Activity on Discharge: As tolerated Stand Alone Forms: Patient Portal Discharge page Care Plan Goals: recovery from Covid-19 Health Concerns: hypokalemia, Covid-19 infection, hypoxia, diverticulosis, metastatic prostate cancer Plan of Treatment: hypokalemia resolved Covid-19: isolate for 5 days from onset of symptoms then wear mask for 5 more days; take dexamethasone 6 mg daily for 8 days and hold prednisone while on dexamethasone hypoxia: resolved diverticulosis: high-fiber diet, avoid constipation metastatic prostate cancer: follow up at [facility] for PET scan and Mona-177 Please follow up with your primary care doctor within 1 week. Return to the hospital if you experience recurrent or worsening symptoms. Assessment: See Discharge Summary.
--- NOTE | 2023-08-19 10:58 | MHC.CM.PN ---
PT MEDICALLY CLEARED FOR DC HOME W/RESUMP OF FAMILY SUPPORT, PT'S STEPMOTHER LASHAUN WILL LIKELY TRANSPORT SHE IS COMING IN TO VISIT PT.
[2023-08-19 11:25] VITALS: BP 157/84; PULSE 75; RESP 18; TEMP 36.5; O2SAT 97
[2023-08-19] MEDS: Remdesivir 100 MG in 0.9 % Sodium Chloride 230 ML 115 MG IV (12:16)
--- NOTE | 2023-08-20 17:29 | P.CDIM_ITS ---
PROVIDER RESPONSE TEXT: To clarify, the appropriate diagnosis supported by the clinical indicators: Acute QUERY TEXT: PHYSICIAN'S DOCUMENTATION REQUEST Date of Query: 08/19/2023 09:17 AM EST Patient Name: Christian Shelley Admit Date: 08/18/2023 Dear Angela Smith, A review of the medical record indicates additional documentation may be needed. Please review below and update the documentation accordingly. Clinical Indicators: H&P: Plan - Lactic acidosis - not septic, due to dehydration. Continue NS LA 2.5 H Clarify which of the following accurately represents the acuity of the lactic acidosis: Possible options might include: Acute Acute on chronic Other (explain) Clinically unable to determine (explain) Thank you, Nancy Moreno, CCS, CDIS Use of terms such as suspected, likely, concern for, or probable (associated with a specific diagnosi s that is being evaluated, monitored, or treated as if it exists) are acceptable and can be coded in the inpatient se tting, when documented at the time of discharge. Please use your independent medical judgment in providing your response. THIS QUERY IS PART OF THE PERMANENT MEDICAL RECORD
== END 2023-08-19 14:47 | disposition home or self-care (01) | DRG 137 ==
LOC: HO.ED 12:47 → HO.EDOVER 14:03 → HO.IMC 15:16
PROVIDERS: Admitting Provider Family Medicine; Emergency Provider Emergency Medicine; PCP Internal Medicine; Visit Provider Family Medicine
DX: U07.1 COVID-19 (principal); J96.01 Acute respiratory failure with hypoxia; C79.51 Secondary malignant neoplasm of bone; E87.21 Acute metabolic acidosis; C61 Malignant neoplasm of prostate; E86.0 Dehydration; E87.6 Hypokalemia; K57.30 Diverticulosis of large intestine without perforation or abscess without bleeding; Z87.891 Personal history of nicotine dependence; Z79.52 Long term (current) use of systemic steroids; Z79.818 Long term (current) use of other agents affecting estrogen receptors and estrogen levels; Z79.899 Other long term (current) drug therapy
CPT/HCPCS: 36415; 71045; 74177; 80048; 80053; 81001; 82248; 82728; 83605; 83615; 83690; 83735; 84145; 85025; 85027; 86140; 87040; 87502; 87635; 99285; J0248; J1100; J1170; J1650; J2270; J2405; J3480; J8540; Q9967

== ENCOUNTER → 2023-08-18 13:57 | Outpatient (BNV) | payer MEDICAID, SELFPAY | PROVIDERS: Admitting Provider Family Medicine; Emergency Provider Emergency Medicine; PCP Internal Medicine; Visit Provider Family Medicine | DX: E87.6 Hypokalemia (principal); U07.1 COVID-19; J96.01 Acute respiratory failure with hypoxia; C61 Malignant neoplasm of prostate; C79.51 Secondary malignant neoplasm of bone; K57.90 Diverticulosis of intestine, part unspecified, without perforation or abscess without bleeding | CPT/HCPCS: 99223; 99239 ==

== ENCOUNTER 2023-09-08 11:37 | Outpatient (REF) | payer MEDICAID, SELFPAY ==
[2023-09-15 11:14] LABS: Testosterone, Total <1 ng/dL (250-1100)
== END 2023-09-08 11:38 | disposition home or self-care (01) ==
LOC: HO.LAB 11:37
PROVIDERS: PCP Internal Medicine; Visit Provider Urology
DX: C61 Malignant neoplasm of prostate (principal); C79.51 Secondary malignant neoplasm of bone
CPT/HCPCS: 36415; 84153; 84403

== ENCOUNTER 2023-11-27 06:35 | Outpatient (REF) | payer MEDICAID, SELFPAY ==
[2023-11-27 06:49] LABS: MANUAL DIFF FLAG NO
[2023-11-27 07:30] LABS: Basophils Absolute Auto 0.1 X10*3/uL (0.0-0.2); Eosinophils Absolute Auto 0.2 X10*3/uL (0.0-0.4); Eosinophils Percent Auto 1.9 % (0-4); Hematocrit 46.3 % (42.0-52.0); Hemoglobin 15.3 g/dl (14.0-18.0); Imm Gran Abs Auto 0.05 X10*3/uL (0.00-0.03); Imm Gran Pct Auto 0.5 % (0.0-0.4); Lymphocytes Absolute Auto 2.2 X10*3/uL (1.2-4.9); Lymphocytes Percent Auto 23.3 % (20-40); Mean Corpuscular Hemoglobin 29.1 pg (27.0-33.0); Mean Corpuscular Volume 88.2 fL (80.0-98.0); Mean Platelet Volume 9.8 fL (9.4-12.4); Monocytes Absolute Auto 0.7 X10*3/uL (0.1-1.2); Monocytes Percent Auto 6.8 % (2-11); Neutrophils Absolute Auto 6.4 x10*3/uL (2.0-8.3); Neutrophils Percent Auto 66.5 % (45-73); Platelet Count 198 X10*3/uL (160-400); Red Blood Count 5.25 X10*6/uL (4.60-5.80); Red Cell Distribution Width 14.5 % (11.0-16.0); White Blood Count 9.6 X10*3/uL (4.8-10.8)
[2023-11-27 08:03] LABS: Alanine Aminotransferase 39 U/L (0-40); Albumin Level 4.6 g/dL (3.5-5.0); Alkaline Phosphatase 805 U/L (39-117); Anion Gap 12 (12-20); Aspartate Amino Transferase 29 U/L (5-37); Bilirubin Total 0.6 mg/dL (0.0-1.0); Blood Urea Nitrogen 9 mg/dL (9-16); Carbon Dioxide 26 mmol/L (22-29); Chloride 106 mmol/L (96-108); Cholesterol 201 mg/dL (<200); Estimated Glomerular Filt Rate > 60; Glucose Random 123 mg/dL (60-115); HDL Cholesterol 31 mg/dL (>40); Potassium 4.1 mmol/L (3.3-5.1); Sodium 140 mmol/L (135-145); Total Protein 7.7 g/dL (6.5-8.0); Triglycerides 548 mg/dL (<150)
== END 2023-11-27 06:36 | disposition home or self-care (01) ==
LOC: HO.LAB 06:35
PROVIDERS: PCP Internal Medicine; Visit Provider Internal Medicine
DX: Z00.01 Encounter for general adult medical examination with abnormal findings (principal); C61 Malignant neoplasm of prostate; E78.00 Pure hypercholesterolemia, unspecified; F17.201 Nicotine dependence, unspecified, in remission; I10 Essential (primary) hypertension; Z86.010 Personal history of colon polyps
CPT/HCPCS: 36415; 80053; 80061; 85025

== ENCOUNTER 2024-01-26 08:41 | Outpatient (AMB) | payer MEDICAID, SELFPAY ==
--- NOTE | 2024-01-26 08:42 | MHC.OFFVIS ---
Intake Visit Reasons: PSA Follow Up(PSA?) Intake Note: Patient is Present for Telephone Follow Up For Urology Med: Prescribed By Dr Michael Gregory Antibiotic Allergy: None Blood Thinner: None Patient has PSA lab done August 2023. Missed Follow up in Sep 2023 Allergies No Known Allergies [No Known Allergies*] Allergy (Verified 01/26/24 08:46) Medication List - Last Reconciled 01/26/24 by Asif Gloria MD abiraterone 1,000 mg (2 x 500 mg) PO DAILY atorvastatin 20 mg PO DAILY darolutamide (Nubeqa) 600 mg PO BID dexamethasone 6 mg PO DAILY hydrocodone-acetaminophen 5-325 mg 1 tab PO Q6H PRN leuprolide acetate (6 month) (Eligard) 45 mg subcut [id number] nicotine (polacrilex) 4 mg PO Q2H ondansetron 8 mg PO Q8H oxybutynin chloride ER 5 mg PO DAILY 30 days prednisone 5 mg PO DAILY tramadol 50 mg PO Q6H PRN HPI Comments Details: Christian is a pleasant male. He is a patient of Dr. Solis. He is seen for the following urologic conditions - prostate cancer metastatic at diagnosis Telemedicine Evaluation 15 min Consultation [employer] Hallie Video attempted 02/11 Receiving Lu177 every 6 weeks with PSA drop. PET- CT being used to review disease burden. - remains on antiandrogen (Nubeqa) plus GnRH given through [facility] + Zometa monthly - experiencing urinary urgency and frequency. Trial oxybutynin 06/13 Bone Scan interval progression of L3 lesion. Receiving rank Ligand injection every 3 months. PSA doubling time less than 6 months. Recommend reassessment [facility] for Lu177 and potential advice regarding anti androgen switching. GnRH administered 02/10 continued good response with continuous abiraterone. Due for GnRH in May with bone scan Discussed exercise and resistance bands to help control metabolic impact 04/11 PSA rebound - addition of abiraterone - [facility] recommendation for to 2 years continuous 02/09 Initial therapy GnRH with upfront docetaxol PSA 01/10 380, 03/12 14, 04/11 35, 08/12 0.60, 10/13 0.47, 01/11 0.6 T <1, 06/13 1.49 T <1, 09/12 9.4 <1 Prostate Cancer 01/10 high-grade, high-volume, metastatic Last GnRH 12/11 Had presented through PCP with back pain Background of ankylosing spondylitis Initial PSA 01/10 380 Imaging - 01/10 CT scan with lytic spinal disease Histologic type:??Prostatic acinar adenocarcinoma Histologic grade:??3 + 4 = 7 (Parts E and F), 4 + 5 = 9 (Parts A-D, G-I), and 5 + 4 = 9 (Parts J-L) Tumor quantitation: Number cores positive:??12 Total number of cores:??12 - % of tissue involved:??90% (Parts D, G, I-J), 80% (Parts A,?H, L), 70% (Part B), 50% (Parts C, E, F, K) Periprostatic fat invasion:??Present, Seminal vesicle invasion:??Not identified, Perineural invasion:??Present, Lymphovascular invasion:??Not identified [facility] Medical History High cholesterol Prostate cancer Surgical History H/O elbow surgery History of appendectomy Family History Father Prostate CA Paternal Grandmother Lung cancer Maternal Grandmother Breast cancer Paternal Aunt Lung cancer Social History Household Members: None Housing: Apartment Are you a primary neonatal intensive care nurse to a significant other at home: No Do you presently have visiting nurse or other home services: No Alcohol intake: never Comment: pt refused fall prevention measures Patient Tobacco Use Status: Former Tobacco user Quit Date: 12/2021 Tobacco use type: Cigarette Substance Use Type: Marijuana Advance Directives Date on File: 01/20/22 service: No Current occupational status: employed Review of Systems Const All systems reviewed & are unremarkable except as noted in HPI and below Reports no additional complaints Resp Reports no additional complaints GI Reports no additional complaints Reports as per HPI Musc Reports no additional complaints Physical Exam Telemedicine evaluation Appropriate responses Regular breathing rate and rhythm HEENT Head: Yes normal to inspection Ears: hearing grossly normal bilaterally Eyes General: appearance normal, both eyes and all related structures Neck Neck: Yes normal visual inspection Chest Chest palpation & inspection: normal inspection of the chest Resp Effort & Inspection: normal respiratory effort and able to speak in complete sentences Telehealth Telehealth Telehealth Platform: [employer] Location of provider rendering services: practice address Location of patient: address on file Patient Identification confirmed using: Name, : Yes Telehealth method: video Patient verbally consented to treatment: Yes Patient verbally consented to billing insurance company: Yes Patient informed of any privacy concerns related to visit: Yes Minutes spent on Phone/Video with Pt.: 15 Assessment & Plan Assessment & Plan (1) Prostate cancer metastatic to bone: Code(s): C61 - Malignant neoplasm of prostate; C79.51 - Secondary malignant neoplasm of bone Category: Medical (2) Urinary urgency: Code(s): R39.15 - Urgency of urination Category: Medical Plan Trial oxybutynin 2 month follow-up Medications: New oxybutynin chloride ER 5 mg PO DAILY 30 days 30 tabs 1RF N32.81 - Overactive bladder, R39.15 - Urgency of urination Patient Instructions: Imaging studies, laboratory and physical exam results were discussed and reviewed in detail. No major barriers to patient understanding were identified. An opportunity to ask questions regarding the treatment plan was provided. All questions were answered. The patient expressed understanding and agreement with the above treatment plan. The patient is aware they should contact our office by phone for worsening of their current condition or the appearance of new urologic symptoms. Compliance is encouraged with any medications and followup testing that is ordered. It is a privilege to participate in the urologic care of your patient. If you have any questions or concerns regarding treatment for the above conditions, or other urologic issues, please do not hesitate to contact me. The office telephone contact is [phone]. This note is constructed using voice recognition software. While every effort has been made to ensure accuracy rn staff errors may have been included. Yours sincerely, Dr Asif Gloria MD, [facility] - Urology Providers of Expert, Compassionate Care for the Genitourinary System Coding Level of Care Code Tele Est Pt Level 4 (32745) Diagnoses Prostate cancer metastatic to bone C61; C79.51 Urinary urgency R39.15
== END 2024-01-26 09:00 | disposition home or self-care (01) ==
LOC: HO.HUSH 08:41
PROVIDERS: PCP Internal Medicine; Visit Provider Urology
DX: C61 Malignant neoplasm of prostate (principal); C79.51 Secondary malignant neoplasm of bone; R39.15 Urgency of urination
CPT/HCPCS: 99214

== ENCOUNTER → 2024-01-26 08:41 | Outpatient (BNVA) | payer MEDICAID, SELFPAY | PROVIDERS: PCP Internal Medicine; Visit Provider Urology ==

== ENCOUNTER 2024-03-29 08:33 | Outpatient (AMB) | payer MEDICAID, SELFPAY ==
--- NOTE | 2024-03-29 08:33 | A.OFFVIS_ITS ---
Intake Visit Reasons: 2M Med Review(Oxybutynin) Intake Note: Patient is Present for Telephone Follow Up For Urology Med: Oxybutynin, Abiraterone, Nubeqa,Eligard Antibiotic Allergy:None Blood Thinner: None Improvement Intern Required: No Allergies No Known Allergies [No Known Allergies*] Allergy (Verified 03/29/24 08:35) Medication List - Last Reconciled 03/29/24 by Asif Gloria MD abiraterone 1,000 mg (2 x 500 mg) PO DAILY atorvastatin 20 mg PO DAILY darolutamide (Nubeqa) 600 mg PO BID dexamethasone 6 mg PO DAILY hydrocodone-acetaminophen 5-325 mg 1 tab PO Q6H PRN leuprolide acetate (6 month) (Eligard) 45 mg subcut [id number] nicotine (polacrilex) 4 mg PO Q2H ondansetron 8 mg PO Q8H oxybutynin chloride ER 5 mg PO DAILY 90 days tramadol 50 mg PO Q6H PRN HPI Comments Details: Christian is a pleasant male. He is a patient of Dr. Solis. He is seen for the following urologic conditions - prostate cancer metastatic at diagnosis Telemedicine Evaluation 15 min Consultation [employer] Hallie Video 04/13 follow-up Trial from oxybutynin - Nocturia down to 1-2x - refill provided. Four month follow-up 02/11 Receiving Lu177 every 6 weeks with PSA drop. PET- CT being used to review disease burden. - remains on antiandrogen (Nubeqa) plus GnRH given through [facility] + Zometa monthly - experiencing urinary urgency and frequency. Trial oxybutynin 06/13 Bone Scan interval progression of L3 lesion. Receiving rank Ligand injection every 3 months. PSA doubling time less than 6 months. Recommend reassessment [facility] for Lu177 and potential advice regarding anti androgen switching. GnRH administered 02/10 continued good response with continuous abiraterone. Due for GnRH in May with bone scan Discussed exercise and resistance bands to help control metabolic impact 04/11 PSA rebound - addition of abiraterone - [facility] recommendation for to 2 years continuous 02/09 Initial therapy GnRH with upfront docetaxol PSA 01/10 380, 03/12 14, 04/11 35, 08/12 0.60, 10/13 0.47, 01/11 0.6 T <1, 06/13 1.49 T <1, 09/12 9.4 <1 Prostate Cancer 01/10 high-grade, high-volume, metastatic Last GnRH 12/11 Had presented through PCP with back pain Background of ankylosing spondylitis Initial PSA 01/10 380 Imaging - 01/10 CT scan with lytic spinal disease Histologic type:??Prostatic acinar adenocarcinoma Histologic grade:??3 + 4 = 7 (Parts E and F), 4 + 5 = 9 (Parts A-D, G-I), and 5 + 4 = 9 (Parts J-L) Tumor quantitation: Number cores positive:??12 Total number of cores:??12 - % of tissue involved:??90% (Parts D, G, I-J), 80% (Parts A,?H, L), 70% (Part B), 50% (Parts C, E, F, K) Periprostatic fat invasion:??Present, Seminal vesicle invasion:??Not identified, Perineural invasion:??Present, Lymphovascular invasion:??Not identified [facility] Medical History High cholesterol Prostate cancer Surgical History H/O elbow surgery History of appendectomy Family History Father Prostate CA Paternal Grandmother Lung cancer Maternal Grandmother Breast cancer Paternal Aunt Lung cancer Social History Household Members: None Housing: Apartment Are you a primary youth career specialist to a significant other at home: No Do you presently have visiting nurse or other home services: No Alcohol intake: never Comment: pt refused fall prevention measures Patient Tobacco Use Status: Former Tobacco user Tobacco use type: Cigarette Substance Use Type: Marijuana Advance Directives Date on File: 01/20/22 service: No Current occupational status: employed Review of Systems Const All systems reviewed & are unremarkable except as noted in HPI and below Reports no additional complaints Resp Reports no additional complaints GI Reports no additional complaints Reports as per HPI Musc Reports no additional complaints Physical Exam Telemedicine evaluation Appropriate responses Regular breathing rate and rhythm HEENT Head: Yes normal to inspection Ears: hearing grossly normal bilaterally Eyes General: appearance normal, both eyes and all related structures Neck Neck: Yes normal visual inspection Chest Chest palpation & inspection: normal inspection of the chest Resp Effort & Inspection: normal respiratory effort and able to speak in complete sentences Telehealth Telehealth Telehealth Platform: [employer] Location of provider rendering services: practice address Location of patient: address on file Patient Identification confirmed using: Name, : Yes Telehealth method: video Patient verbally consented to treatment: Yes Patient verbally consented to billing insurance company: Yes Patient informed of any privacy concerns related to visit: Yes Minutes spent on Phone/Video with Pt.: 15 Assessment & Plan Assessment & Plan (1) Urinary urgency: Code(s): R39.15 - Urgency of urination Category: Medical (2) Prostate cancer metastatic to bone: Code(s): C61 - Malignant neoplasm of prostate; C79.51 - Secondary malignant neoplasm of bone Category: Medical Plan 4 month follow-up PSA Medications: Changed From oxybutynin chloride ER 5 mg PO DAILY 30 days 30 tabs 1RF N32.81 - Overactive bladder, R39.15 - Urgency of urination To oxybutynin chloride ER 5 mg PO DAILY 90 days 90 tabs 1RF N32.81 - Overactive bladder, R39.15 - Urgency of urination Patient Instructions: Imaging studies, laboratory and physical exam results were discussed and reviewed in detail. No major barriers to patient understanding were identified. An opportunity to ask questions regarding the treatment plan was provided. All questions were answered. The patient expressed understanding and agreement with the above treatment plan. The patient is aware they should contact our office by phone for worsening of their current condition or the appearance of new urologic symptoms. Compliance is encouraged with any medications and followup testing that is ordered. It is a privilege to participate in the urologic care of your patient. If you have any questions or concerns regarding treatment for the above conditions, or other urologic issues, please do not hesitate to contact me. The office telephone contact is [phone]. This note is constructed using voice recognition software. While every effort has been made to ensure accuracy head chopper errors may have been included. Yours sincerely, Dr Asif Gloria MD, [facility] - Urology Providers of Expert, Compassionate Care for the Genitourinary System Coding Level of Care Code Tele Est Pt Level 3 (43957) Diagnoses Urinary urgency R39.15 Prostate cancer metastatic to bone C61; C79.51
== END 2024-03-29 08:49 | disposition home or self-care (01) ==
LOC: HO.HUSH 08:33
PROVIDERS: PCP Internal Medicine; Visit Provider Urology
DX: R39.15 Urgency of urination (principal); C61 Malignant neoplasm of prostate; C79.51 Secondary malignant neoplasm of bone
CPT/HCPCS: 99213

== ENCOUNTER → 2024-03-29 08:33 | Outpatient (BNVA) | payer MEDICAID, SELFPAY | PROVIDERS: PCP Internal Medicine; Visit Provider Urology ==

== ENCOUNTER 2024-07-26 07:02 | Outpatient (REF) | payer MEDICARE, MEDICAID, SELFPAY ==
[2024-07-26 08:33] LABS: Prostate Specific Antigen 0.37 ng/mL (<0.05-4.0)
== END 2024-07-26 07:03 | disposition home or self-care (01) ==
LOC: HO.LAB 07:02
PROVIDERS: PCP Internal Medicine; Visit Provider Urology
DX: C61 Malignant neoplasm of prostate (principal); C79.51 Secondary malignant neoplasm of bone; Z12.5 Encounter for screening for malignant neoplasm of prostate
CPT/HCPCS: 36415; 84153

== ENCOUNTER 2024-07-28 08:55 | Outpatient (AMB) | payer MEDICARE, MEDICAID, SELFPAY ==
--- NOTE | 2024-07-28 07:52 | A.OFFVIS_ITS ---
Intake Visit Reasons: 4m/PSA(set) Intake Note: Patient is Present for Follow Up PSA Urology Medication: Oxybutynin Antibiotic Allergies: None Blood Thinners: None Recent PSA: 07/25/2024 0.37 Radar Engineer Required: No Accompanied by: Self / Same As Patient Allergies No Known Allergies [No Known Allergies*] Allergy (Verified 07/28/24 07:55) HPI Comments Details: Christian is a pleasant male. He is a patient of Dr. Solis. He is seen for the following urologic conditions - prostate cancer metastatic at diagnosis Doing well Good energy Completed JIE 177 with planned follow-up PET-CT Upcoming planned PET-CT 08/14 completing JIE 177. Remains on combination androgen blockade with GNRH and darolutamide - bone support with Zometa - PSA 0.4 04/13 follow-up Trial from oxybutynin - Nocturia down to 1-2x - refill provided. Four month follow-up 02/11 Receiving Lu177 every 6 weeks with PSA drop. PET- CT being used to review disease burden. - remains on antiandrogen (Nubeqa) plus GnRH given through [facility] + Zometa monthly - experiencing urinary urgency and frequency. Trial oxybutynin 06/13 Bone Scan interval progression of L3 lesion. Receiving rank Ligand injection every 3 months. PSA doubling time less than 6 months. Recommend reassessment [facility] for Lu177 and potential advice regarding anti androgen switching. GnRH administered 02/10 continued good response with continuous abiraterone. Due for GnRH in May with bone scan Discussed exercise and resistance bands to help control metabolic impact 04/11 PSA rebound - addition of abiraterone - [facility] recommendation for to 2 years continuous 02/09 Initial therapy GnRH with upfront docetaxol PSA 01/10 380, 03/12 14, 04/11 35, 08/12 0.60, 10/13 0.47, 01/11 0.6 T <1, 06/13 1.49 T <1, 09/12 9.4 <1 Prostate Cancer 01/10 high-grade, high-volume, metastatic Last GnRH 12/11 Had presented through PCP with back pain Background of ankylosing spondylitis Initial PSA 01/10 380 Imaging - 01/10 CT scan with lytic spinal disease Histologic type:??Prostatic acinar adenocarcinoma Histologic grade:??3 + 4 = 7 (Parts E and F), 4 + 5 = 9 (Parts A-D, G-I), and 5 + 4 = 9 (Parts J-L) Tumor quantitation: Number cores positive:??12 Total number of cores:??12 - % of tissue involved:??90% (Parts D, G, I-J), 80% (Parts A,?H, L), 70% (Part B), 50% (Parts C, E, F, K) Periprostatic fat invasion:??Present, Seminal vesicle invasion:??Not identified, Perineural invasion:??Present, Lymphovascular invasion:??Not identified PFSH Medical History High cholesterol Prostate cancer Surgical History H/O elbow surgery History of appendectomy Family History Father Prostate CA Paternal Grandmother Lung cancer Maternal Grandmother Breast cancer Paternal Aunt Lung cancer Social History Household Members: None Housing: Apartment Are you a primary date night caregiver to a significant other at home: No Do you presently have visiting nurse or other home services: No Alcohol intake: never Comment: pt refused fall prevention measures Patient Tobacco Use Status: Former Tobacco user Tobacco use type: Cigarette Substance Use Type: Marijuana Advance Directives Date on File: 01/20/22 service: No Current occupational status: employed Review of Systems Const Denies chills and Denies fever(s) Card Reports no additional complaints and Denies syncope Resp Denies cough GI Denies abdominal pain and Denies heartburn Reports as per HPI and Denies change in libido Neuro Denies syncope Psych Denies change in libido Endo Denies change in libido Physical Exam Const General: cooperative, healthy appearing, comfortable and no acute distress Orientation/consciousness: patient oriented x3 HEENT Face and sinus: Yes normal facial exam Mouth: moist mucous membranes Neck Neck: Yes normal visual inspection, Yes full ROM and Yes trachea midline Chest Chest palpation & inspection: normal inspection of the chest Resp Effort & Inspection: normal respiratory effort, able to speak in complete sentences and no respiratory distress GI Inspection: Yes normal to inspection Back/Spine/Pelvis Cervical Spine: normal cervical lordosis Thoracic/Lumbar Spine: thoracic and lumbar spine normal to inspection Skin General skin exam: no rashes or lesions noted Neuro General: patient oriented x3, gait normal, tone normal and moves all extremities Extrem General: Yes normal to inspection and Yes capillary refill normal Assessment & Plan Assessment & Plan (1) Prostate cancer metastatic to bone: Code(s): C61 - Malignant neoplasm of prostate; C79.51 - Secondary malignant neoplasm of bone Category: Medical Plan Four month follow-up Orders: Orders Prostate Specific Antigen 4 Months C61 - Malignant neoplasm of prostate, C79.51 - Secondary malignant neoplasm of bone Patient Instructions: Imaging studies, laboratory and physical exam results were discussed and reviewed in detail. No major barriers to patient understanding were identified. An opportunity to ask questions regarding the treatment plan was provided. All questions were answered. The patient expressed understanding and agreement with the above treatment plan. The patient is aware they should contact our office by phone for worsening of their current condition or the appearance of new urologic symptoms. Compliance is encouraged with any medications and followup testing that is ordered. It is a privilege to participate in the urologic care of your patient. If you have any questions or concerns regarding treatment for the above conditions, or other urologic issues, please do not hesitate to contact me. The office telephone contact is [phone]. This note is constructed using voice recognition software. While every effort has been made to ensure accuracy sales applications engineer errors may have been included. Yours sincerely, Dr Asif Gloria MD, [facility] - Urology Providers of Expert, Compassionate Care for the Genitourinary System Coding Level of Care Code Est Pt Level 3 (11718) Diagnoses Prostate cancer metastatic to bone C61; C79.51
== END 2024-07-28 09:49 | disposition home or self-care (01) ==
LOC: HO.HUSH 08:55
PROVIDERS: PCP Internal Medicine; Visit Provider Urology
DX: C61 Malignant neoplasm of prostate (principal); C79.51 Secondary malignant neoplasm of bone
CPT/HCPCS: 99213

== ENCOUNTER → 2024-07-28 08:55 | Outpatient (BNVA) | payer MEDICARE, MEDICAID, SELFPAY | PROVIDERS: PCP Internal Medicine; Visit Provider Urology | DX: C61 Malignant neoplasm of prostate (principal); C79.51 Secondary malignant neoplasm of bone; Z79.83 Long term (current) use of bisphosphonates | CPT/HCPCS: 99212 ==

== ENCOUNTER 2024-12-13 09:32 | Outpatient (AMB) | payer MEDICARE, MEDICAID, SELFPAY ==
--- NOTE | 2024-12-13 09:33 | MHC.OFFVIS ---
Intake Visit Reasons: 4M/PSA Intake Note: Patient is present for4M/PSA Urology Medication:NONE Antibiotic Allergy:NONE Blood Thinner:NONE Dispatcher Chief Coal Slurry Required: No Allergies No Known Allergies [No Known Allergies*] Allergy (Verified 12/13/24 09:34) HPI Comments Details: Christian is a pleasant male. He is a patient of Dr. Solis. He is seen for the following urologic conditions - prostate cancer metastatic at diagnosis Telemedicine Evaluation 15 min Consultation Live [employer] Hallie Video 11/28/24 PSA 54 Currently undergoing secondary chemotherapy, has restarted darolutamide Receiving spot radiation for back metastases with Dr. Springer Pain is controlled with combination of fentanyl patch and MS Contin Refill oxybutynin script 08/14 completed JIE 177. Remains on combination androgen blockade with GNRH and darolutamide - bone support with Zometa - PSA 0.4 04/13 follow-up Trial from oxybutynin - Nocturia down to 1-2x - refill provided. Four month follow-up 02/11 Receiving Lu177 every 6 weeks with PSA drop. PET- CT being used to review disease burden. - remains on antiandrogen (Nubeqa) plus GnRH given through [facility] + Zometa monthly - experiencing urinary urgency and frequency - oxybutynin 06/13 Bone Scan interval progression of L3 lesion. Receiving rank Ligand injection every 3 months. PSA doubling time less than 6 months. Recommend reassessment [facility] for Lu177 and potential advice regarding anti androgen switching. GnRH administered 02/10 continued good response with continuous abiraterone. Due for GnRH in May with bone scan Discussed exercise and resistance bands to help control metabolic impact 04/11 PSA rebound - addition of abiraterone - [facility] recommendation for to 2 years continuous 02/09 Initial therapy GnRH with upfront docetaxol PSA 01/10 380, 03/12 14, 04/11 35, 08/12 0.60, 10/13 0.47, 01/11 0.6 T <1, 06/13 1.49 T <1, 09/12 9.4 <1 Prostate Cancer 01/10 high-grade, high-volume, metastatic Last GnRH 12/11 Had presented through PCP with back pain Background of ankylosing spondylitis Initial PSA 01/10 380 Imaging - 01/10 CT scan with lytic spinal disease Histologic type:??Prostatic acinar adenocarcinoma Histologic grade:??3 + 4 = 7 (Parts E and F), 4 + 5 = 9 (Parts A-D, G-I), and 5 + 4 = 9 (Parts J-L) Tumor quantitation: Number cores positive:??12 Total number of cores:??12 - % of tissue involved:??90% (Parts D, G, I-J), 80% (Parts A,?H, L), 70% (Part B), 50% (Parts C, E, F, K) Periprostatic fat invasion:??Present, Seminal vesicle invasion:??Not identified, Perineural invasion:??Present, Lymphovascular invasion:??Not identified PFSH Medical History High cholesterol Prostate cancer Surgical History H/O elbow surgery History of appendectomy Family History Father Prostate CA Paternal Grandmother Lung cancer Maternal Grandmother Breast cancer Paternal Aunt Lung cancer Social History Household Members: None Housing: Apartment Are you a primary healthcare consultant to a significant other at home: No Do you presently have visiting nurse or other home services: No Alcohol intake: never Comment: pt refused fall prevention measures Patient Tobacco Use Status: Former Tobacco user Tobacco use type: Cigarette Substance Use Type: Marijuana Advance Directives Date on File: 01/20/22 service: No Current occupational status: employed Review of Systems Const All systems reviewed & are unremarkable except as noted in HPI and below Reports no additional complaints Resp Reports no additional complaints GI Reports no additional complaints Reports as per HPI Musc Reports no additional complaints Physical Exam Telemedicine evaluation Appropriate responses Regular breathing rate and rhythm HEENT Head: Yes normal to inspection Ears: hearing grossly normal bilaterally Eyes General: appearance normal, both eyes and all related structures Neck Neck: Yes normal visual inspection Chest Chest palpation & inspection: normal inspection of the chest Resp Effort & Inspection: normal respiratory effort and able to speak in complete sentences Telehealth Telehealth Location of provider rendering services: practice address Location of patient: address on file Patient Identification confirmed using: Name, : Yes Telehealth method: voice only Patient verbally consented to treatment: Yes Patient verbally consented to billing insurance company: Yes Patient informed of any privacy concerns related to visit: Yes Assessment & Plan Assessment & Plan (1) Prostate cancer metastatic to bone: Code(s): C61 - Malignant neoplasm of prostate; C79.51 - Secondary malignant neoplasm of bone Category: Medical (2) Urinary urgency: Code(s): R39.15 - Urgency of urination Category: Medical Plan Refill oxybutynin Four month follow-up office Medications: Refilled oxybutynin chloride ER 5 mg PO DAILY 90 days 90 tabs 1RF N32.81 - Overactive bladder, R39.15 - Urgency of urination Patient Instructions: This note is constructed using voice recognition software. While every effort has been made to ensure accuracy marketing support coordinator errors may have been included. Imaging studies, laboratory and physical exam results were discussed and reviewed in detail. No major barriers to patient understanding were identified. An opportunity to ask questions regarding the treatment plan was provided. All questions were answered. The patient expressed understanding and agreement with the above treatment plan. The patient is aware they should contact our office by phone for worsening of their current condition or the appearance of new urologic symptoms. Compliance is encouraged with any medications and followup testing that is ordered. It is a privilege to participate in the urologic care of your patient. If you have any questions or concerns regarding treatment for the above conditions, or other urologic issues, please do not hesitate to contact me. The office telephone contact is [phone]. Sincerely, Dr Asif Gloria MD, [facility] - Urology Compassionate Specialist Care for the Genitourinary System Coding Level of Care Code Tele Est Pt Level 3 (14261) Complex EM visit Add On G2211 Diagnoses Prostate cancer metastatic to bone C61; C79.51 Urinary urgency R39.15
--- OUTSIDE RECORDS SUMMARY | 2024-12-13 10:42 | XMS_ITS | Patient Health Record ---
Author Organization [facility] Address [address] [place] [address] Care Team Providers Care Customer Resolution Specialist Name Role Phone MagalyhemalathaYessy Primary Care Provider Unavailab Too Zelaya Unavailable [phone] Reason For Referral No Information Medications Medication SIG (Take, Route, Frequency, Duration) Notes Start Date End Date Status Motrin IB 200 MG 1 tablet with food o r milk as needed Orally prn Active Fish Oil 1000 MG 1 capsule Orally Onc e a day for 30 day(s) Active Multivitamin Adults - as directed Orally Active Atorvastatin Calcium 20 MG TAKE 1 TABLET BY MOUTH AT BEDTIME Oral for 90 Active Immunizations Vaccine Route Administration Date Status Comme nts Influenza Unknown 02/16/2020 Refused Social History Tobacco Use: Social History Observation Description Date Details (start date - stop date) Current Smoker NA - NA Tobacco Use/Smoking Question Answer Notes Patient is a current smoker How often do you smoke cigarettes? every day How many cigarettes a day do you smoke? 6-10 How soon after you wake up do you smoke your fir st cigarette? 31-60 minutes Alcohol Screen Question Answer Notes Did you have a drink contain ing alcohol in the past year? Yes How often did you have a dri nk containing alcohol in the past year? Never (0 point) How many drinks did you have on a typical day when you were drinking in the past year? 1 or 2 drinks (0 point) How often did you have 6 or more drinks on one occasion in the past year? Never (0 point) Points 0 Interpretation Negative Section Notes: Smoker 1/2 ppd; no sig alcoh ol Problems Problem Type SNOMED Code ICD Code Onset Dates Problem Status W/U Status Risk Notes Problem [id number] Encounter for screening for malignant neoplasm of colon (Z12.11) Active confirmed Problem 536988598077128 Preprocedural examination (Z01.818) Active confirmed Plan Of Treatment Future Test Test Name Order Date COLONOSCOPY 02/16/2020 Insurance Providers Payer Name Payer Address Payer Phone Subscriber Number Group Number Insured Name Patient Relationship to Insured Coverage Start Date Coverage End Date [employer] [address] [place] [phone] [id number] CAROLE RASHEED Self - patient is the insured MEDICAID OF [facility] [address] [place] [address] [id number] CAROLE RASHEED Self - patient is the insured Medical (General) History Medical History History ICD Code Denies UT,DM,CVA,Lung disease,renal dise ase Hyperlipidemia Surgical History Surgery Date(Month/Year) Biceps tendon in right arm 2019 Appendectomy age 6
--- OUTSIDE RECORDS SUMMARY | 2024-12-13 10:42 | XMS_ITS ---
Author Organization [facility] Address [address] [place] [id number] Care Team Providers Care Barrel Leveler Name Role Phone Yessy Solis Primary Care Provider Unavailab Too Zelaya [phone] Encounters Encounter Location Date Provider Diagnosis [facility] [address] [place] [address] 11/26/2023 Too Cohen Plan Of Treatment No Information Progress Notes * CAROLE RASHEEDDOB: [birth year] (58 yo M)Acc No.[id number]:11/26/2023 Patient:?KATHYACAROLE :1965???Age:58 Y???Sex:Male Address:[address] [place], [address] * true * Date:? Generated for Ana kelly/Baldomero/eTransmitting on:?12/13/2024 10:41 AM EDT
== END 2024-12-13 09:49 | disposition home or self-care (01) ==
LOC: HO.HUSH 09:32
PROVIDERS: PCP Internal Medicine; Visit Provider Urology
DX: C61 Malignant neoplasm of prostate (principal); C79.51 Secondary malignant neoplasm of bone; R39.15 Urgency of urination
CPT/HCPCS: 99213; G2211

== ENCOUNTER → 2024-12-13 09:32 | Outpatient (BNVA) | payer MEDICARE, SELFPAY | PROVIDERS: PCP Internal Medicine; Visit Provider Urology ==